=== PATIENT | male | born 1960 | race Caucasian/White ===

== ENCOUNTER 2019-08-07 23:17 | Inpatient (IN) | payer MEDICAID ==
[~2019-08-07] VITALS: Ht 170.2 cm; Wt 80.7 kg
[~2019-08-07 23:17] MED LIST: ALBU2.5V13 IH; ALBU2.5V13 NEB; BACL10TA GT; BISA10SU8 RC; CHLO15MO2 MM; CRAN3875 GT; DOCU-141 GT; HEPA50008 SQ; IPRA0.2S9 HHN; LEVE100S GT; LEVO500T75 GT; MAGN400O6 GT; NA P133E RC
--- NOTE | 2019-08-07 23:25 | NUR ---
PT BIBPA FROM [facility] C/O FEVER 101.3 AND O2 DESAT (89%) X1 DAY. TMAX 101.5, CXR TODAY SHOWED POSSIBLE BRONCHITIS. PT HAS ELEVATED HR UPON ARRIVAL 120'S. NON VERBAL BUT RESPONSIVE TO MECHANICAL STIMULUS. G TUBE AND TRACHE IN PLACE. NO ACUTE DISTRESS NOTED AT THIS TIME
--- NOTE | 2019-08-07 23:30 | NUR ---
IV LINE ESTABLISHED. BLOOD DRAWN AND SENT TO LAB
[2019-08-07 23:42] LABS: BASOPHILS % (AUTO) 0.3 % (0.0-2.0); EOSINOPHILS % (AUTO) 1.1 % (0.0-6.0); HEMATOCRIT 48 % (39-51); HEMOGLOBIN 16.1 g/dL (13.5-17.5); LYMPHOCYTES # (AUTO) 0.5 /CMM (0.8-4.8); LYMPHOCYTES % (AUTO) 4.8 % (20.0-44.0); MEAN CORPUSCULAR HGB CONC 33 g/dl (31.0-36.0); MEAN CORPUSCULAR VOLUME 92 fL (80-96); MONOCYTES # (AUTO) 0.5 /CMM (0.1-1.30); MONOCYTES % (AUTO) 4.3 % (2.0-12.0); NEUTROPHILS % (AUTO) 89.5 % (43.0-81.0); PLATELET COUNT (AUTO) 153 /CMM (150-450); RED BLOOD CELL COUNT(AUTO) 5.27 MIL/uL (4.5-6.0); WHITE BLOOD COUNT (AUTO) 11.2 K/uL (4.3-11.0)
--- NOTE | 2019-08-07 23:42 | NUR ---
URINE COLLECTED AND SENT TO LAB
[2019-08-07 23:48] LABS: APPEARANCE,URINE Clear (CLEAR); BILIRUBIN,URINE Negative (NEGATIVE); BLOOD, URINE Small Ery/uL (NEGATIVE); COLOR,URINE Yellow (YELLOW); KETONES,URINE Negative (NEGATIVE); LEUKOCYTE ESTERASE ,URINE Negative (NEGATIVE); NITRITE, URINE Negative (NEGATIVE); PROTEIN,URINE Trace mg/dl (NEGATIVE); UGLUCOSE Negative (NEGATIVE); UROBILINOGEN,URINE 0.2 EU/dL (0.2)
[2019-08-07 23:57] LABS: BACTERIA,URINE Moderate /HPF (None Seen); RBC,URINE 21-50 /HPF (0-2); SQUAMOUS EPITHELIAL CELL,UR Rare /HPF (None Seen)
[2019-08-08 00:06] LABS: CALCIUM, SERUM 8.4 mg/dL (8.5-10.1); CARBON DIOXIDE 29 mmol/L (21-32); CHLORIDE 101 mmol/L (98-107); GLUCOSE 117 mg/dL (74-106); POTASSIUM 3.6 mmol/L (3.5-5.1); SODIUM SERUM 138 mmol/L (136-145); UREA NITROGEN, BLOOD 14 mg/dL (7-18)
[2019-08-08 00:11] LABS: ALANINE AMINOTRANSFERASE 49 U/L (12-78); ALBUMIN 3.3 g/dL (3.4-5.0); ALKALINE PHOSPHATASE 119 U/L (46-116); ASPARTATE AMINOTRANSFERASE 34 U/L (15-37); BILIRUBIN,DIRECT 0.2 mg/dL (0.0-0.2); BILIRUBIN,TOTAL 0.7 mg/dL (0.2-1.0); TOTAL PROTEIN, SERUM 7.6 g/dL (6.4-8.2)
[2019-08-08] MEDS ORDERED: VANCOMYCIN 1 GM in IV D5W 250 ML IV ONE (00:30)
[2019-08-08] MEDS ORDERED: LEVOFLOXACIN 750 MG /D5W 150ML 150 ML IV ONE ×2 (00:30→01:27)
[2019-08-08] MEDS ORDERED: VANCOMYCIN 1 GM VIAL ONE (00:35)
[2019-08-08] MEDS ORDERED: ACETAMINOPHEN 650 MG/SUPP.RECT RC ONE ×2 (00:44→01:00)
[2019-08-08] MEDS ORDERED: IV NS 0.9% 1,000 ML BAG IV ONE ×2 (01:00→01:30)
--- NOTE | 2019-08-08 01:34 | NUR ---
BED ASSIGNMENT ALEXSANDRA [id number]
[2019-08-08] MEDS ORDERED: ONDANSETRON HCL/PF 4 MG/2 ML VIAL IVP PRN (02:00)
[2019-08-08] MEDS ORDERED: Z GUARD REMEDY 2 OZ OINT TP PRN (02:00)
[2019-08-08] MEDS ORDERED: MORPHINE SULFATE INJ 2 MG/ML DISP.SYRIN IV PRN (02:00)
[2019-08-08] MEDS ORDERED: MAG HYDROX/AL HYDROX/SIMETH 30 ML UDC PO PRN (02:00)
[2019-08-08] MEDS ORDERED: ACETAMINOPHEN 325 MG TABLET PO PRN (02:00)
[2019-08-08] MEDS ORDERED: MAGNESIUM HYDROXIDE 30 ML UDC PO PRN (02:00)
[2019-08-08] MEDS ORDERED: HYDROCODONE/APAP 5/325MG 1 EACH TABLET PO PRN (02:00)
--- NOTE | 2019-08-08 02:27 | NUR ---
FLUID REASSESSMENT TO BE DONE AT THE FLOOR
--- NOTE | 2019-08-08 02:45 | NUR ---
RN NOTES RECEIVED PATIENT REPORT FROM [facility] PATIENT IS IN THE UNIT . PATIENT PLACED ON MORTGAGE ORIGINATOR WITH ST. NO COMPLAINT OF PAIN , NO CHEST PAIN, NO SOB AT THIS TIME. PATIENT IS TRACH WITH COOL AEROSOL 5L.PATIENT IS A/OX3. IV LINE ARE PATIENT AND INTACT WITH IV FLUIDS. ALL SAFETY MEASURES ARE IN PLACE, CALL LIGHT IN REACH. WILL CONTINUE TO MONITOR PATIENT.
[2019-08-08 04:00] VITALS: BP 101/43
--- NOTE | 2019-08-08 04:15 | NUR ---
RN NOTES PATIENT HAD EPISODE OF V TACH AT 0406 FOR 46 SEC AND ANOTHER ONE AT 0412 FOR 2 SEC. MD CORTNEY QUEVEDO NOTIFIED . NO NEW ORDERS FOR NOW. PER HE WILL PUT CARDIO CONSULT FOR AM. WILL CONTINUE TO MONITOR PATIENT CLOSELY.
[2019-08-08 06:31] LABS: BASOPHILS % (AUTO) 0.2 % (0.0-2.0); EOSINOPHILS % (AUTO) 0.5 % (0.0-6.0); HEMATOCRIT 42 % (39-51); LYMPHOCYTES # (AUTO) 0.6 /CMM (0.8-4.8); LYMPHOCYTES % (AUTO) 5.5 % (20.0-44.0); MEAN CORPUSCULAR HGB CONC 33 g/dl (31.0-36.0); MEAN CORPUSCULAR VOLUME 92 fL (80-96); MONOCYTES # (AUTO) 0.7 /CMM (0.1-1.30); MONOCYTES % (AUTO) 7.3 % (2.0-12.0); NEUTROPHILS # (AUTO) 8.8 /CMM (1.8-8.9); NEUTROPHILS % (AUTO) 86.5 % (43.0-81.0); PLATELET COUNT (AUTO) 125 /CMM (150-450); WHITE BLOOD COUNT (AUTO) 10.1 K/uL (4.3-11.0)
[2019-08-08 06:47] LABS: ALBUMIN 2.6 g/dL (3.4-5.0); BILIRUBIN,TOTAL 0.5 mg/dL (0.2-1.0); CALCIUM, SERUM 7.4 mg/dL (8.5-10.1); CREATININE 0.8 mg/dL (0.6-1.3); MAGNESIUM 1.8 mg/dL (1.8-2.4); PHOSPHORUS 2.3 mg/dL (2.5-4.9); POTASSIUM 4.1 mmol/L (3.5-5.1); TOTAL PROTEIN, SERUM 6.2 g/dL (6.4-8.2)
[2019-08-08 06:53] LABS: THYROID STIMULATING HORMONE 0.259 uIU/mL (0.358-3.74)
--- NOTE | 2019-08-08 07:05 | NUR ---
RN NOTES RECEIVED PT ON BED, ALERT/FOLLOWS SIMPLE COMMAND, TRACH DEPENDENT , ON COOL AEROSOL AT 35% ,TRACH CARE DONE, NO SOB NOTED, ON TELE ST HR IN 120'S , R HAND AND L HAND IV SITES , CLEAN,DRY AND INTACT, SR UP x3, CALL LIGHT WITHIN EASY REACH, BED LOCKED AND IN LOWEST POSITION, CONTINUE TO MONITOR.
[2019-08-08] MEDS: IV NS 0.9% 1,000 ML IV PRN ×2 (07:06→21:28)
[2019-08-08] MEDS ORDERED: FEE PK DOSING 1 MIN EA MC ONE (07:35)
[2019-08-08 08:00] VITALS: BP_SYST 113; BP_SYST 118; BP_DIAS 66; BP_DIAS 67
[2019-08-08] MEDS: PANTOPRAZOLE 40 MG TABLET.DR PO SCH (08:09)
[2019-08-08] MEDS ORDERED: IPRA0.2S9 NEB (08:31)
[2019-08-08] MEDS ORDERED: ACET650S26 GT (08:31)
[2019-08-08] MEDS ORDERED: LACT100027 GT (08:31)
[2019-08-08] MEDS: VANCOMYCIN 1 GM in IV D5W 250 ML IV SCH ×2 (08:37→16:03)
[2019-08-08] MEDS ORDERED: NEUTRA PHOS 1 POWD.PACKET NG ONE (10:00)
[2019-08-08] MEDS: ENOXAPARIN SODIUM 40 MG/0.4 ML DISP.SYRIN SQ SCH (11:07)
[2019-08-08] MEDS: IPRATROPIUM NEB FS 0.5 MG/2.5 ML AMPUL.NEB NEB SCH ×4 (11:56→22:39)
[2019-08-08] MEDS: ALBUTEROL HALF STRENGTH 1.25 MG/3 ML VIAL.NEB NEB SCH ×4 (11:56→22:39)
--- NOTE | 2019-08-08 12:00 | NUR ---
RN NOTES TRACH SUCTIONING DONE, VSS STABLE , CONTINUE TO MONITOR .
[2019-08-08 16:00] VITALS: BP 99/54
--- NOTE | 2019-08-08 16:45 | NUR ---
Patient is trach dependent,resides at [facility] [phone] with bedhold x7days . He is bedfast and requires total assist with adl's. Current dc plan is to return to SNF. Addendum: 08/08/19 at 1645 by GELY LOZADA RN Amended: Links added.
--- NOTE | 2019-08-08 18:00 | NUR ---
RN NOTES NO SIGNIFICANT CHANGES NOTED ON THIS SHIFT, VSS STABLE, OK TO START TF PER DR WINSTON, SR UP X3, CALL LIGHT WITHIN EASY REACH, BED LOCKED AND IN LOWEST POSITION, WILL ENDOSE TO CHIEF INFORMATION SECURITY OFFICER NURSE FOR CONTINUITY OF CARE.
--- NOTE | 2019-08-08 19:30 | NUR ---
PER DAY SHIFT RN SHE'S WAITING FOR DIETARY RECOMMENDATION FOR TUBE FEEDING. WILL FOLLOW UP TO OUR HOSPITALIST
--- NOTE | 2019-08-08 19:31 | NUR ---
PER DAY SHIFT RN SHE CANT START TUBE FEEDING UNTIL PT SEEN BY DIETITIAN,
--- NOTE | 2019-08-08 19:44 | NUR ---
RECEIVE PT IN BED NON VERBAL ON COOL [id number] O2 SAT 100% STABLE SAFETY MEASURES IN PLACE. WILL CONTINUE TO MONTIOR Addendum: 08/09/19 at 0245 by ESPERANZA BATES RN ON COOL AEROSOL T-PIECE 8LPM.
[2019-08-08 20:00] VITALS: BP 104/59
[2019-08-08] MEDS: LEVOFLOXACIN 750 MG /D5W 150ML 750 MG in PREMIX 1 EA IV SCH (21:21)
--- NOTE | 2019-08-09 00:31 | NUR ---
PAGED AND CLARIFIED HOSPITALIST IF HE WOULD LIKE TO CONTINUE FEEDING FROM THE NURSING FACILITY. PER KOURTNEY VENEGAS, ORDER CONTINUE FEEDING FROM THE FACILITY ISOSOURCE CHANGE TO JEVITY AT 40CC/HR DIETARY CONSULT AT AM. READ BACK AND VERIFIED ORDERS NOTED AND CARRIED OUT
[2019-08-09] MEDS: VANCOMYCIN 1 GM in IV D5W 250 ML IV SCH ×4 (00:41→23:51)
[2019-08-09] MEDS: IPRATROPIUM NEB FS 0.5 MG/2.5 ML AMPUL.NEB NEB SCH ×6 (02:58→23:58)
[2019-08-09] MEDS: ALBUTEROL HALF STRENGTH 1.25 MG/3 ML VIAL.NEB NEB SCH ×6 (02:58→23:58)
[2019-08-09 04:00] VITALS: BP 98/55
--- NOTE | 2019-08-09 06:34 | NUR ---
PT SLEPT WELL, STABLE, GT FEEDING INFUSING ORDERED. ON PORTEX 7 COOL AEROSOL 8LPM T-PIECE O2 SAT 100% NEEDS ATTENDED AND ANTICIPATED, KEPT CLEAN, DRY AND COMFORTABLE AT ALL TIMES. AM CARE RENDERED. SAFETY MEASURES IN PLACE. WILL ENDORSE TO NEXT SHIFT POC.
[2019-08-09 08:00] VITALS: BP_SYST 105; BP_SYST 115; BP_DIAS 62; BP_DIAS 63
[2019-08-09] MEDS: PANTOPRAZOLE 40 MG TABLET.DR PO SCH (08:01)
[2019-08-09 08:03] LABS: BASOPHILS % (AUTO) 0.4 % (0.0-2.0); HEMATOCRIT 41 % (39-51); HEMOGLOBIN 13.8 g/dL (13.5-17.5); LYMPHOCYTES # (AUTO) 0.8 /CMM (0.8-4.8); LYMPHOCYTES % (AUTO) 16.6 % (20.0-44.0); MEAN CORPUSCULAR HGB CONC 34 g/dl (31.0-36.0); MEAN CORPUSCULAR VOLUME 90 fL (80-96); MONOCYTES # (AUTO) 0.6 /CMM (0.1-1.30); MONOCYTES % (AUTO) 12.6 % (2.0-12.0); NEUTROPHILS # (AUTO) 3.2 /CMM (1.8-8.9); NEUTROPHILS % (AUTO) 69.4 % (43.0-81.0); PLATELET COUNT (AUTO) 122 /CMM (150-450); RED BLOOD CELL COUNT(AUTO) 4.55 MIL/uL (4.5-6.0); WHITE BLOOD COUNT (AUTO) 4.6 K/uL (4.3-11.0)
[2019-08-09 08:56] LABS: CALCIUM, SERUM 7.8 mg/dL (8.5-10.1); CREATININE 0.8 mg/dL (0.6-1.3); PHOSPHORUS 1.9 mg/dL (2.5-4.9); POTASSIUM 3.6 mmol/L (3.5-5.1)
[2019-08-09] MEDS ORDERED: JEVITY 1.2 CAL 1,000 ML BOTTLE GT PRN ×2 (09:04)
[2019-08-09] MEDS: ENOXAPARIN SODIUM 40 MG/0.4 ML DISP.SYRIN SQ SCH (09:22)
[2019-08-09 12:00] VITALS: BP 107/63
[2019-08-09] MEDS: NYSTATIN TOP POWDER 15 GM BOTTLE TP SCH ×2 (15:10→17:01)
[2019-08-09 16:00] VITALS: BP_SYST 106; BP_SYST 113; BP_DIAS 68; BP_DIAS 70
[2019-08-09] MEDS ORDERED: K PHOS NEUTRAL 250 MG TABLET PO ONE (16:30)
[2019-08-09] MEDS: IV NS 0.9% 1,000 ML IV PRN (17:05)
--- NOTE | 2019-08-09 19:00 | NUR ---
MS/RN CLOSING NOTES PATIENT CONTINUES TO REMAIN IN STABLE CONDITION THROUGHOUT THE SHIFT. PROVIDED COMFORT AND SAFETY. PATIENT ABLE TO TOLERATE FEEDING AND MEDICATIONS WELL. HIB ELEVATED AT ALL TIMES. NO PAIN OR ACUTE DISTRESS AT THIS TIME. RESPIRATION EVEN AND UNLABORED. SKIN IS DRY WARM TO TOUCH. ALL NEEDS ANTICIPATED. CALL LIGHT WITHIN REACHED. BED LOCKED AND IN LOWEST POSITION. SAFETY MAINTAINED. WILL CONTINUE TO MONITOR CLOSELY. ENDORSED TO PM NURSE FOR JHON.
[2019-08-09 20:00] VITALS: BP 111/72
--- NOTE | 2019-08-09 20:32 | NUR ---
MS/RN OPENING NOTE RECEIVED PATIENT ALERT BUT NON-VERBAL, ABLE TO NOD TO QUESTIONS. PATIENT CURRENTLY SHOWING NO SIGNS OF ANY DISTRESS. PATIENT IS ON A T-PIECE WITH TRACH OF PORTEX #7 WITH 5L AND FIO2 OF 35%. PATIENT SHOWS NO SIGNS OF ANY SOB. PATIENT IS ON G-TUBE FEEDING OF JEVITY AT 60ML/HR WITH NO RESIDUAL. PATIENT HAS AN IV ON THE RT HAND WITH #22G WITH NS RUNNING AT 75ML/HR. ALL SAFETY PRECAUTION APPLIED. WILL CONTINUE TO MONITOR PATIENT THROUGHOUT SHIFT.
[2019-08-09] MEDS: LEVOFLOXACIN 750 MG /D5W 150ML 750 MG in PREMIX 1 EA IV SCH (21:14)
[2019-08-09] MEDS: JEVITY 1.2 CAL 1,000 ML BOTTLE GT PRN (22:25)
[2019-08-10] MEDS: ALBUTEROL HALF STRENGTH 1.25 MG/3 ML VIAL.NEB NEB SCH ×5 (03:48→20:23)
[2019-08-10] MEDS: IPRATROPIUM NEB FS 0.5 MG/2.5 ML AMPUL.NEB NEB SCH ×5 (03:48→20:23)
[2019-08-10 04:00] VITALS: BP 113/71
[2019-08-10] MEDS: IV NS 0.9% 1,000 ML IV PRN (06:25)
--- NOTE | 2019-08-10 07:01 | NUR ---
MS/RN CLOSING PATIENT IN BED CURRENTLY WITH NO SIGN OF ANY DISTRESS. PATIENT IS ON A T-PIECE WITH 8L OF 02 AND FIO2 OF 35% SATURATING AT 95%. NO SIGN OF ANY SOB. G-TUBE IN PLACE WITH FEEDING OF JEVITY RUNNING AT 60ML/HR WITH NO RESIDUAL. TRAORE CATHETER PATENT AND IN PLACE WITH NO LEAKAGE. PATEINT HAS RT HAND IV GAUGE #22 WITH NS RUNNING AT 75ML/HR.
[2019-08-10 07:36] LABS: BASOPHILS % (AUTO) 0.4 % (0.0-2.0); EOSINOPHILS % (AUTO) 3.6 % (0.0-6.0); HEMATOCRIT 42 % (39-51); HEMOGLOBIN 14.1 g/dL (13.5-17.5); LYMPHOCYTES # (AUTO) 1.2 /CMM (0.8-4.8); LYMPHOCYTES % (AUTO) 26.6 % (20.0-44.0); MEAN CORPUSCULAR HGB CONC 34 g/dl (31.0-36.0); MEAN CORPUSCULAR VOLUME 90 fL (80-96); MONOCYTES # (AUTO) 0.6 /CMM (0.1-1.30); MONOCYTES % (AUTO) 14.4 % (2.0-12.0); NEUTROPHILS # (AUTO) 2.4 /CMM (1.8-8.9); PLATELET COUNT (AUTO) 134 /CMM (150-450); RED BLOOD CELL COUNT(AUTO) 4.61 MIL/uL (4.5-6.0); WHITE BLOOD COUNT (AUTO) 4.4 K/uL (4.3-11.0)
[2019-08-10] MEDS: PANTOPRAZOLE 40 MG TABLET.DR PO SCH (07:40)
[2019-08-10 07:53] LABS: CALCIUM, SERUM 8.3 mg/dL (8.5-10.1); CREATININE 0.7 mg/dL (0.6-1.3); PHOSPHORUS 2.9 mg/dL (2.5-4.9); POTASSIUM 3.7 mmol/L (3.5-5.1)
[2019-08-10 08:00] VITALS: BP 117/69
[2019-08-10] MEDS: VANCOMYCIN 1 GM in IV D5W 250 ML IV SCH (08:57)
[2019-08-10] MEDS: ENOXAPARIN SODIUM 40 MG/0.4 ML DISP.SYRIN SQ SCH (08:58)
[2019-08-10] MEDS: NYSTATIN TOP POWDER 15 GM BOTTLE TP SCH ×2 (08:59→16:03)
[2019-08-10] MEDS: JEVITY 1.2 CAL 1,000 ML BOTTLE GT PRN (13:32)
[2019-08-10 16:00] VITALS: BP_SYST 110; BP_SYST 96; BP_DIAS 58; BP_DIAS 62
[2019-08-10] MEDS: VANCOMYCIN 0.75 GM in IV D5W 250 ML IV SCH ×2 (16:03→23:34)
--- NOTE | 2019-08-10 18:49 | NUR ---
MS/RN CLOSING NOTES PATIENT CONTINUES TO REMAIN IN STABLE CONDITION THROUGHOUT THE SHIFT. PROVIDED COMFORT AND SAFETY. PATIENT ABLE TO TOLERATE FEEDING AND MEDICATIONS WELL. HOB ELEVATED AT ALL TIMES. NO PAIN OR ACUTE DISTRESS AT THIS TIME. RESPIRATION EVEN AND UNLABORED. SKIN IS DRY WARM TO TOUCH. ALL NEEDS ANTICIPATED. CALL LIGHT WITHIN REACHED. BED LOCKED AND IN LOWEST POSITION. SAFETY MAINTAINED. WILL CONTINUE TO MONITOR CLOSELY. ENDORSED TO PM NURSE FOR JHON.
--- NOTE | 2019-08-10 19:40 | NUR ---
MS/RN OPENING NOTES PATIENT IS NON VERBAL ON COOLING AEROSOL, REQUIRE NEEDED SUCTIONING FOR MODERATE AND PRODUCTIVE SECRETIONS, SKIN WARM TO TOUCHM USES CONDOM CATHETER DRAINING YELLOW COLORED URINE, ON G TUBE FEEDING AR 60ML/HR, WITH RIGHT HAND GAUGE 220AT NS AT 75 ML/HR, TO MONITOR FOR ANY CHANGES. BED LOCKED, CALL LIGTHS WITHIN REACH.,, RECEIVED REPORT FROM AM RN FOR JHON.
[2019-08-10 20:00] VITALS: BP_SYST 107; BP_SYST 96; BP_DIAS 58; BP_DIAS 60
[2019-08-10] MEDS ORDERED: LEVOFLOXACIN (750 MG) 750 MG TABLET PO SCH (21:00)
[2019-08-11] MEDS: ALBUTEROL HALF STRENGTH 1.25 MG/3 ML VIAL.NEB NEB SCH ×6 (00:06→18:54)
[2019-08-11] MEDS: IPRATROPIUM NEB FS 0.5 MG/2.5 ML AMPUL.NEB NEB SCH ×6 (00:06→18:54)
[2019-08-11 04:00] VITALS: BP 110/69
--- NOTE | 2019-08-11 06:27 | NUR ---
MS/RN CLOSING NOTES PATIENT ABLE TO SLEEP DURING THE NIGHT, ATTENDED ALL NEEDS, FREQUENT SUCTIONING, REPOSITIONED AND TURNED, OFF LOAD EXTREMITIES, ON COOLING AEROSOL, GTUBE PATENT WITH NO RESIDUAL. WITH IV SITE ON LEFT ARM, KEPT COMFORTABLE. APPLIED TREATMENT FOR SACRAL AND GROIN. WILL ENDORSE TO AM RN FOR JHON.
--- NOTE | 2019-08-11 07:30 | NUR ---
RECEIVED BEDSIDE SBAR FROM PM RN - SAFETY PRECAUTIONS IN PLACE- VITALS STABLE - TRACH ARESOL ON, PIV IN PLACE AND IN TACT INFUSING- FEEDING TUBE INFUSING WELL- WILL CONTINUE TO MONITOR REPORT AND RECORD
[2019-08-11 08:00] VITALS: BP 107/65
[2019-08-11] MEDS: VANCOMYCIN 0.75 GM in IV D5W 250 ML IV SCH ×2 (08:11→15:28)
[2019-08-11] MEDS: PANTOPRAZOLE 40 MG TABLET.DR PO SCH (08:11)
[2019-08-11] MEDS: NYSTATIN TOP POWDER 15 GM BOTTLE TP SCH ×2 (08:11→16:46)
[2019-08-11] MEDS: ENOXAPARIN SODIUM 40 MG/0.4 ML DISP.SYRIN SQ SCH (08:13)
[2019-08-11 08:15] LABS: BASOPHILS % (AUTO) 0.5 % (0.0-2.0); EOSINOPHILS % (AUTO) 4.5 % (0.0-6.0); HEMATOCRIT 43 % (39-51); HEMOGLOBIN 14.4 g/dL (13.5-17.5); LYMPHOCYTES # (AUTO) 1.5 /CMM (0.8-4.8); LYMPHOCYTES % (AUTO) 29.6 % (20.0-44.0); MEAN CORPUSCULAR HGB CONC 34 g/dl (31.0-36.0); MEAN CORPUSCULAR VOLUME 91 fL (80-96); MONOCYTES # (AUTO) 0.6 /CMM (0.1-1.30); NEUTROPHILS # (AUTO) 2.8 /CMM (1.8-8.9); NEUTROPHILS % (AUTO) 54.4 % (43.0-81.0); PLATELET COUNT (AUTO) 134 /CMM (150-450); RED BLOOD CELL COUNT(AUTO) 4.71 MIL/uL (4.5-6.0); WHITE BLOOD COUNT (AUTO) 5.1 K/uL (4.3-11.0)
[2019-08-11 08:27] LABS: CALCIUM, SERUM 8.5 mg/dL (8.5-10.1); CREATININE 0.8 mg/dL (0.6-1.3); POTASSIUM 3.3 mmol/L (3.5-5.1)
[2019-08-11] MEDS ORDERED: MAG HYDROX/AL HYDROX/SIMETH 30 ML UDC GT PRN (11:30)
[2019-08-11] MEDS ORDERED: ACETAMINOPHEN 650 MG/20.3 ML UDC GT PRN (11:30)
[2019-08-11] MEDS ORDERED: HYDROCODONE/APAP 5/325MG 1 EACH TABLET GT PRN (11:30)
[2019-08-11] MEDS ORDERED: MAGNESIUM HYDROXIDE 30 ML UDC GT PRN (11:30)
[2019-08-11] MEDS ORDERED: POTASSIUM CHLORIDE 20 MEQ POWDER PACKET GT SCH (11:30)
--- NOTE | 2019-08-11 13:10 | NUR ---
[place] called for report [phone]-spoke with SHANNON Lopez
--- NOTE | 2019-08-11 15:29 | NUR ---
patient is being discharged from facility back to [facility]- lines removed- waiting for transportation
[2019-08-11 15:59] VITALS: BP 114/73
--- NOTE | 2019-08-11 19:18 | NUR ---
care endorsed to pm rn - safety precautions in place- will continue to monitor report and record
--- NOTE | 2019-08-11 19:30 | NUR ---
MS RN NOTES PATIENTI N BED, NONVERBAL. SHOWS NO SIGNS OF ACUTE RESPIRATORY DISTRESS, NO ACUTE PAIN. IV ON LAND 24G CLEAN, DRY AND INTACT. SHOWS NO SIGNS OF INFILTRATION NO REDNESS. GTUBE IS CLEAN DRY AND INTACT, FLUSHING WELL. SAFETY PRECAUTION IN PLACE.BED IN LOWEST POSITION, LOCKED, AND CALL LIGHT KEPT WITHIN REACH. [facility] TO [facility], AWAITING CLERICAL AND ADMINISTRATIVE WORKERS. WILL CONTINUE TO MONITOR.
[2019-08-11 20:00] VITALS: BP 105/56
--- NOTE | 2019-08-11 21:30 | NUR ---
MS RN NOTES PATIENT LEFT AMBULANCE AT 2130. PATIENT NONVERBAL, CAN FOLLOW COMMANDS. BREATHING EVEN AND UNLABORED ON TRACH WITH AEROSOL. IV ON LAC 22G CLEAN DRY AND INTACT. EMT ASKED FOR IV TO BE IN PLACE. GT CLEAN DRY AND INTACT. ID BAND REMOVED. BELONGINGS CHECKLIST COMPLETED. REPORT GIVEN TO RN IN [facility].
[2019-08-12] MEDS ORDERED: PANTOPRAZOLE 40 MG/PACK PACK GT SCH (09:00)
== END 2019-08-11 21:30 | DRG 720 ==
LOC: ER 23:17 → TELE-TD 08-08 01:48 → MEDSG1 08-08 10:50
PROVIDERS: ADMIT Family Medicine; ATTEND Family Medicine
DX: A41.9 Sepsis, unspecified organism (principal); E43 Unspecified severe protein-calorie malnutrition; G93.1 Anoxic brain damage, not elsewhere classified; J96.11 Chronic respiratory failure with hypoxia; Z93.0 Tracheostomy status; R53.2 Functional quadriplegia; J18.9 Pneumonia, unspecified organism; D69.6 Thrombocytopenia, unspecified; I10 Essential (primary) hypertension; K21.9 Gastro-esophageal reflux disease without esophagitis; N39.0 Urinary tract infection, site not specified; Z87.820 Personal history of traumatic brain injury; Z93.1 Gastrostomy status; Z68.27 Body mass index [BMI] 27.0-27.9, adult; R13.10 Dysphagia, unspecified; L30.4 Erythema intertrigo; J20.9 Acute bronchitis, unspecified; Z88.0 Allergy status to penicillin; Z88.1 Allergy status to other antibiotic agents; Z79.01 Long term (current) use of anticoagulants; Z79.51 Long term (current) use of inhaled steroids
CPT/HCPCS: 31720; 36415; 71045-TC; 80048-TC; 80053-TC; 80061-TC; 80076-TC; 80202-TC; 81000-TC; 83605-TC; 83735-TC; 84100-TC; 84443-TC; 84484-TC; 85025-TC; 85730-TC; 87040-TC; 87070-TC; 87081-TC; 87086-TC; 94640-TC; 94664-TC; 94762-TC; A4216; A4349; A4623; G0378; J1650; J1956; J3370; J7030; J7060

== ENCOUNTER 2022-03-19 18:47 | Emergency (ER) | payer MEDICAID ==
[~2022-03-19] VITALS: Ht 167.6 cm; Wt 77.1 kg
[~2022-03-19 18:47] MED LIST changes: +ACET650S26 GT; -HEPA50008 SQ; +IPRA0.2S9 NEB; +LACT100027 GT; -LEVO500T75 GT
--- NOTE | 2022-03-19 18:55 | NUR ---
ELKIN FROM [facility] FOR C/O OF FACIAL SWELLING SINCE THIS MORNING. PT NOTED W/ TRACH INTACT, NO RESPIRATORY DISTRESS. PT ATTACHED TO MONITOR.
--- NOTE | 2022-03-19 19:04 | NUR ---
DR CAREY AT BEDSIDE FOR EVAL
--- NOTE | 2022-03-19 19:20 | NUR ---
IV LINE INSERTED ON RAC #20, BLOOD DRAWN AND SENT TO LAB
--- NOTE | 2022-03-19 19:30 | NUR ---
RECEIVED THIS 62YO MALE PATIENT FROM [facility]. CAME EARLIER WITH CC OF FACIAL SWELLING. PATIENT IS NON VERBAL, WITHDRAWS TO PAIN. CAME WITH TRACHE COLLAR AND WITH GTUBE. PATIENT HAS PERIPHERAL ACCESS ON LEFT AC G20. + BILATERAL HANDS CONTRACTURES. FOR PRN SUCTIONING. ATTACHED TO MONITOR. VITALS CHECKED.
[2022-03-19 19:47] LABS: CALCIUM, SERUM 9.1 mg/dL (8.5-10.1); CREATININE 0.7 mg/dL (0.6-1.3); POTASSIUM 4.2 mmol/L (3.5-5.1)
[2022-03-19 19:48] LABS: C-REACTIVE PROTEIN 4.1 mg/dL (0.0-0.9)
[2022-03-19] MEDS ORDERED: LORAZEPAM INJ 2 MG/ML VIAL ONE (20:00)
[2022-03-19] MEDS ORDERED: LORAZEPAM INJ 2 MG/ML VIAL IV ONE (20:00)
[2022-03-19] MEDS ORDERED: IOHEXOL-300 100 ML VIAL IV ONE (20:14)
[2022-03-19 20:18] LABS: BASOPHILS % (AUTO) 0.3 % (0.0-2.0); EOSINOPHILS % (AUTO) 3.2 % (0.0-6.0); HEMATOCRIT 47 % (39-51); HEMOGLOBIN 16.1 g/dL (13.5-17.5); LYMPHOCYTES # (AUTO) 1.5 K/uL (0.8-4.8); LYMPHOCYTES % (AUTO) 17.1 % (20.0-44.0); MEAN CORPUSCULAR HGB CONC 34 g/dl (31.0-36.0); MEAN CORPUSCULAR VOLUME 91 fL (80-96); MONOCYTES # (AUTO) 0.6 K/uL (0.1-1.30); MONOCYTES % (AUTO) 6.7 % (2.0-12.0); NEUTROPHILS # (AUTO) 6.2 K/uL (1.8-8.9); NEUTROPHILS % (AUTO) 72.7 % (43.0-81.0); PLATELET COUNT (AUTO) 169 K/uL (150-450); RED BLOOD CELL COUNT(AUTO) 5.18 MIL/uL (4.5-6.0); WHITE BLOOD COUNT (AUTO) 8.5 K/uL (4.3-11.0)
--- NOTE | 2022-03-19 20:48 | NUR ---
PT BROUGHT TO CT DEPARTMENT
--- NOTE | 2022-03-19 21:03 | NUR ---
CAME BACK FROM CT DEPT
--- NOTE | 2022-03-19 22:14 | NUR ---
PT WILL BE TRANSPORTED IN 90 MINS VIA [facility].
--- NOTE | 2022-03-19 22:23 | NUR ---
N[facility] RN AT [facility] NOTIF[facility] THAT [facility] IS COMING BACK. REPORT GIVEN
--- NOTE | 2022-03-20 00:15 | NUR ---
[facility] at bedside for pt transport back from his facility. pt is in stable condition. NAD noted. report given
[2022-03-20 00:56] VITALS: BP 111/51
== END 2022-03-20 00:30 | disposition home or self-care (01) ==
LOC: ER 19:27
DX: R22.0 Localized swelling, mass and lump, head (principal); I10 Essential (primary) hypertension; K21.9 Gastro-esophageal reflux disease without esophagitis; Z93.1 Gastrostomy status; Z88.0 Allergy status to penicillin; Z88.8 Allergy status to other drugs, medicaments and biological substances; Z79.899 Other long term (current) drug therapy
CPT/HCPCS: 99285; 96374; 70491; 85025; 80048; 85652; 36415; 85730; 86140; J2060; Q9967

== ENCOUNTER 2023-04-23 08:57 | Inpatient (IN) | payer MEDICAID, OTHER ==
[~2023-04-23] VITALS: Ht 170.2 cm; Wt 83.9 kg
[2023-04-23] MEDS ORDERED: IV NS 0.9% 1,000 ML BAG IV ONE (09:30)
[2023-04-23] MEDS ORDERED: LEVOFLOXACIN 750 MG /D5W 150ML PIGGYBACK IV ONE (09:30)
[2023-04-23] MEDS ORDERED: ALBUTEROL FS 2.5 MG/3 ML VIAL.NEB NEB ONE (09:30)
[2023-04-23] MEDS ORDERED: ACET-2605 GT (09:34)
[2023-04-23] MEDS ORDERED: CRAN425C6 GT (09:34)
[2023-04-23] MEDS ORDERED: ACET-2070 GT (09:34)
[2023-04-23] MEDS ORDERED: ALBU6.7H9 IH ×2 (09:34)
[2023-04-23 09:38] VITALS: O2SAT 95
[2023-04-23] MEDS ORDERED: ALBUTEROL FS 2.5 MG/3 ML VIAL.NEB ONE (09:45)
[2023-04-23] MEDS ORDERED: IPRATROPIUM NEB FS 0.5 MG/2.5 ML AMPUL.NEB ONE (09:45)
[2023-04-23 09:53] LABS: CALCIUM, SERUM 9.5 mg/dL (8.5-10.1); CARBON DIOXIDE 30 mmol/L (21-32); CHLORIDE 100 mmol/L (98-107); CREATININE 0.6 mg/dL (0.6-1.3); GLUCOSE 136 mg/dL (74-106); POTASSIUM 4.6 mmol/L (3.5-5.1); SODIUM SERUM 136 mmol/L (136-145); UREA NITROGEN, BLOOD 22 mg/dL (7-18)
[2023-04-23 09:55] VITALS: O2SAT 97
[2023-04-23 09:59] LABS: ALANINE AMINOTRANSFERASE 40 U/L (12-78); ALBUMIN 2.7 g/dL (3.4-5.0); ALKALINE PHOSPHATASE 141 U/L (46-116); ASPARTATE AMINOTRANSFERASE 29 U/L (15-37); BILIRUBIN,DIRECT 0.3 mg/dL (0.0-0.2); BILIRUBIN,TOTAL 0.7 mg/dL (0.2-1.0); TOTAL PROTEIN, SERUM 8.6 g/dL (6.4-8.2)
[2023-04-23] MEDS ORDERED: LEVOFLOXACIN 750 MG /D5W 150ML 750 MG in PREMIX 1 EA IV ONE (10:00)
[2023-04-23 10:01] LABS: LACTIC ACID 1.2 mmol/L (0.4-2.0)
[2023-04-23 10:21] LABS: INR 1.05 (0.91-1.10); PARTIAL THROMBOPLASTIN TIME 30.2 SEC (24.3-34.3); PROTHROMBIN TIME 11.1 SECS (9.2-11.1)
[2023-04-23 10:25] LABS: EOSINOPHILS # (AUTO) 0.5 K/uL (0.0-0.7); EOSINOPHILS % (AUTO) 4.7 % (0.0-6.0); HEMATOCRIT 48 % (39-51); HEMOGLOBIN 15.9 g/dL (13.5-17.5); LYMPHOCYTES # (AUTO) 1.3 K/uL (0.8-4.8); LYMPHOCYTES % (AUTO) 11.6 % (20.0-44.0); MEAN CORPUSCULAR HEMOGLOBIN 30 PG (26.0-33.0); MEAN CORPUSCULAR HGB CONC 33 g/dl (31.0-36.0); MEAN CORPUSCULAR VOLUME 90 fL (80-96); MONOCYTES # (AUTO) 0.9 K/uL (0.1-1.30); NEUTROPHILS # (AUTO) 8.5 K/uL (1.8-8.9); NEUTROPHILS % (AUTO) 75.7 % (43.0-81.0); PLATELET COUNT (AUTO) 211 K/uL (150-450); RED BLOOD CELL COUNT(AUTO) 5.32 MIL/uL (4.5-6.0); RED CELL DISTRIBUTION WIDTH 15.9 % (11.5-15.0); WHITE BLOOD COUNT (AUTO) 11.2 K/uL (4.3-11.0)
[2023-04-23 12:02] LABS: APPEARANCE,URINE CLEAR (CLEAR); BILIRUBIN,URINE NEGATIVE (NEGATIVE); BLOOD, URINE TRACE-INTA Ery/uL (NEGATIVE); COLOR,URINE YELLOW (YELLOW); KETONES,URINE NEGATIVE (NEGATIVE); LEUKOCYTE ESTERASE ,URINE NEGATIVE (NEGATIVE); NITRITE, URINE NEGATIVE (NEGATIVE); PH,URINE 6.5 (5.0-8.0); PROTEIN,URINE 2+ mg/dl (NEGATIVE); UGLUCOSE NEGATIVE (NEGATIVE)
[2023-04-23 12:52] LABS: ADD URINE CULTURE YES; BACTERIA,URINE 2+ /HPF (None Seen); WBC,URINE 0-2 /HPF (0-3)
[2023-04-23] MEDS ORDERED: ONDANSETRON HCL/PF 4 MG/2 ML VIAL IVP PRN (14:30)
[2023-04-23] MEDS ORDERED: Z GUARD REMEDY 4 OZ OINT TP PRN (14:30)
[2023-04-23] MEDS ORDERED: CEFEPIME 1 GM VIAL IV ONE (15:00)
[2023-04-23] MEDS ORDERED: CEFEPIME 1 GM in IV D5W 50 ML IV ONE (15:00)
[2023-04-23] MEDS ORDERED: NA PHOS,M-B/NA PHOS,DI-BA 1 EA ENEMA RC PRN (16:00)
[2023-04-23] MEDS ORDERED: BISACODYL SUPP (10 MG) 10 MG/SUPP.RECT SUPP.RECT RC PRN (16:00)
[2023-04-23] MEDS ORDERED: MAGNESIUM HYDROXIDE 30 ML UDC GT PRN (16:00)
[2023-04-23] MEDS: VANCOMYCIN 1 GM in IV D5W 250ml IV SCH (16:46)
[2023-04-23] MEDS ORDERED: OSMOLITE 1.2 CAL 1,000 ML LIQUID GT PRN (17:00)
[2023-04-23] MEDS ORDERED: diphenhydrAMINE HCL 50 MG/ML VIAL IV STA (17:16)
[2023-04-23] MEDS: BACLOFEN (10 MG) 10 MG TABLET GT SCH (17:35)
[2023-04-23 20:00] VITALS: BP 118/86; TEMP 98.7; O2SAT 96
[2023-04-23 20:21] VITALS: O2SAT 96
[2023-04-23] MEDS: CHLORHEXIDINE GLUCONATE 15 ML UDC MM SCH (20:54)
[2023-04-23] MEDS: LEVETIRACETAM SOL (5 ML) 100 MG/ML UDC GT SCH (20:54)
[2023-04-23 22:51] VITALS: O2SAT 95
[2023-04-23] MEDS: ACETAMINOPHEN 650 MG/20.3 ML UDC PEG PRN (22:51)
[2023-04-23] MEDS: ALBUTEROL FS 2.5 MG/3 ML VIAL.NEB NEB PRN (22:51)
[2023-04-23] MEDS: IPRATROPIUM NEB FS 0.5 MG/2.5 ML AMPUL.NEB NEB PRN (22:51)
[2023-04-23 23:05] VITALS: O2SAT 98
[2023-04-24] VITALS (10 sets, daily range): BP systolic 103–157; BP diastolic 59–93; TEMP 98.6–99.7; O2SAT 92–98
[2023-04-24] MEDS: BACLOFEN (10 MG) 10 MG TABLET GT SCH ×5 (00:39→23:44)
[2023-04-24] MEDS: VANCOMYCIN 1 GM in IV D5W 250ml IV SCH (00:50)
[2023-04-24] MEDS ORDERED: diphenhydrAMINE HCL ELIX 25 MG/10 ML UDC PO PRN (01:00)
[2023-04-24 05:51] LABS: ABG BASE EXCESS 2.6 mmol/L; ABG OXYGEN SATURATION 93.9 % (92.0-98.5); ABG PCO2 47.3 mmHg (35.0-45.0); ABG PH 7.394 (7.350-7.450); ABG PO2 69.9 mmHg (75.0-100.0); ABG TOTAL HEMOGLOBIN 14.8 G/dL (13.5-18.0); AaDO2 160.9 mmHg; COHb 1.2 % (0.5-1.5); MetHb 0.2 % (0.0-1.5); O2Hb 92.6 % (94.0-97.0); SITE, ABG Right Brachial; VENT MODE, BG COOL AEROSOL 40%
[2023-04-24 06:26] LABS: BASOPHILS % (AUTO) 0.1 % (0.0-2.0); EOSINOPHILS # (AUTO) 0.3 K/uL (0.0-0.7); EOSINOPHILS % (AUTO) 2.7 % (0.0-6.0); HEMATOCRIT 41 % (39-51); HEMOGLOBIN 13.6 g/dL (13.5-17.5); LYMPHOCYTES # (AUTO) 1.4 K/uL (0.8-4.8); LYMPHOCYTES % (AUTO) 13.5 % (20.0-44.0); MEAN CORPUSCULAR HEMOGLOBIN 30 PG (26.0-33.0); MEAN CORPUSCULAR HGB CONC 33 g/dl (31.0-36.0); MEAN CORPUSCULAR VOLUME 92 fL (80-96); MONOCYTES % (AUTO) 9.6 % (2.0-12.0); NEUTROPHILS # (AUTO) 7.9 K/uL (1.8-8.9); NEUTROPHILS % (AUTO) 74.1 % (43.0-81.0); PLATELET COUNT (AUTO) 205 K/uL (150-450); RED BLOOD CELL COUNT(AUTO) 4.49 MIL/uL (4.5-6.0); RED CELL DISTRIBUTION WIDTH 16.1 % (11.5-15.0); WHITE BLOOD COUNT (AUTO) 10.7 K/uL (4.3-11.0)
[2023-04-24 08:01] LABS: CALCIUM, SERUM 8.6 mg/dL (8.5-10.1); CREATININE 0.8 mg/dL (0.6-1.3); MAGNESIUM 1.8 mg/dL (1.8-2.4); PHOSPHORUS 3.6 mg/dL (2.5-4.9); POTASSIUM 4.1 mmol/L (3.5-5.1)
[2023-04-24] MEDS: CHLORHEXIDINE GLUCONATE 15 ML UDC MM SCH ×2 (09:00→20:27)
[2023-04-24] MEDS: LEVETIRACETAM SOL (5 ML) 100 MG/ML UDC GT SCH ×2 (09:00→20:27)
[2023-04-24] MEDS: DOCUSATE SODIUM LIQ 100 MG/10 ML UDC GT SCH (09:00)
[2023-04-24] MEDS ORDERED: VANCOMYCIN 1 GM in IV D5W 250ml IV SCH (10:00)
[2023-04-24] MEDS ORDERED: LEVOFLOXACIN 750 MG /D5W 150ML 750 MG in PREMIX 1 EA IV SCH (11:00)
[2023-04-24] MEDS: ACETAMINOPHEN 650 MG/20.3 ML UDC PEG PRN (13:46)
[2023-04-24] MEDS: CEFEPIME 2 GM in IV D5W 100 ML IV SCH ×2 (13:48→20:26)
[2023-04-24 14:41] LABS: HIV-1 p24 ANTIGEN NON REACTIVE (NONREACTIVE); HIV-1/2 ANTIBODY NON REACTIVE (NONREACTIVE)
[2023-04-24] MEDS: LINEZOLID 600 MG TABLET NG SCH (20:28)
[2023-04-24] MEDS ORDERED: LINEZOLID RTU BAG 600 MG in PREMIX 1 EA IV SCH (21:00)
[2023-04-24] MEDS: HEPARIN SODIUM, PORCINE 5000 UNITS/1 ML VIAL SQ SCH (21:21)
[2023-04-25] VITALS (11 sets, daily range): BP systolic 107–134; BP diastolic 67–84; TEMP 98.2–99; O2SAT 93–99
[2023-04-25] MEDS: CEFEPIME 2 GM in IV D5W 100 ML IV SCH ×3 (05:16→20:28)
[2023-04-25] MEDS: BACLOFEN (10 MG) 10 MG TABLET GT SCH ×3 (05:17→17:57)
[2023-04-25 06:27] LABS: BASOPHILS % (AUTO) 0.2 % (0.0-2.0); EOSINOPHILS # (AUTO) 0.1 K/uL (0.0-0.7); EOSINOPHILS % (AUTO) 0.6 % (0.0-6.0); HEMATOCRIT 43 % (39-51); HEMOGLOBIN 14.4 g/dL (13.5-17.5); LYMPHOCYTES # (AUTO) 0.7 K/uL (0.8-4.8); LYMPHOCYTES % (AUTO) 6.5 % (20.0-44.0); MEAN CORPUSCULAR HEMOGLOBIN 30 PG (26.0-33.0); MEAN CORPUSCULAR HGB CONC 33 g/dl (31.0-36.0); MEAN CORPUSCULAR VOLUME 91 fL (80-96); MONOCYTES # (AUTO) 0.9 K/uL (0.1-1.30); MONOCYTES % (AUTO) 8.1 % (2.0-12.0); NEUTROPHILS # (AUTO) 9.6 K/uL (1.8-8.9); NEUTROPHILS % (AUTO) 84.6 % (43.0-81.0); PLATELET COUNT (AUTO) 240 K/uL (150-450); RED BLOOD CELL COUNT(AUTO) 4.77 MIL/uL (4.5-6.0); RED CELL DISTRIBUTION WIDTH 15.8 % (11.5-15.0); WHITE BLOOD COUNT (AUTO) 11.4 K/uL (4.3-11.0)
[2023-04-25 06:59] LABS: CALCIUM, SERUM 8.9 mg/dL (8.5-10.1); CREATININE 0.6 mg/dL (0.6-1.3); MAGNESIUM 2.2 mg/dL (1.8-2.4); PHOSPHORUS 3.2 mg/dL (2.5-4.9); POTASSIUM 4.1 mmol/L (3.5-5.1)
[2023-04-25] MEDS: LEVETIRACETAM SOL (5 ML) 100 MG/ML UDC GT SCH ×2 (08:32→20:28)
[2023-04-25] MEDS: DOCUSATE SODIUM LIQ 100 MG/10 ML UDC GT SCH (08:32)
[2023-04-25] MEDS: LINEZOLID 600 MG TABLET NG SCH ×2 (08:32→20:28)
[2023-04-25] MEDS: CHLORHEXIDINE GLUCONATE 15 ML UDC MM SCH ×2 (09:00→20:28)
[2023-04-25] MEDS: HEPARIN SODIUM, PORCINE 5000 UNITS/1 ML VIAL SQ SCH ×2 (09:00→20:57)
[2023-04-26] VITALS (12 sets, daily range): BP systolic 107–174; BP diastolic 70–136; TEMP 97.7–99.3; O2SAT 91–97
[2023-04-26] MEDS: BACLOFEN (10 MG) 10 MG TABLET GT SCH ×4 (00:17→18:07)
[2023-04-26] MEDS: CEFEPIME 2 GM in IV D5W 100 ML IV SCH ×3 (04:08→21:18)
[2023-04-26 06:21] LABS: CREATININE 0.8 mg/dL (0.6-1.3); POTASSIUM 4.2 mmol/L (3.5-5.1)
[2023-04-26] MEDS: LEVETIRACETAM SOL (5 ML) 100 MG/ML UDC GT SCH ×2 (09:44→21:23)
[2023-04-26] MEDS: DOCUSATE SODIUM LIQ 100 MG/10 ML UDC GT SCH (09:44)
[2023-04-26] MEDS: CHLORHEXIDINE GLUCONATE 15 ML UDC MM SCH ×2 (09:44→21:18)
[2023-04-26] MEDS: HEPARIN SODIUM, PORCINE 5000 UNITS/1 ML VIAL SQ SCH ×2 (09:48→21:00)
[2023-04-26] MEDS: LINEZOLID 600 MG TABLET NG SCH (09:48)
[2023-04-26] MEDS ORDERED: LORAZEPAM INJ 2 MG/ML VIAL IV ONE (12:00)
[2023-04-26] MEDS: JEVITY 1.2 CAL 1,000 ML BOTTLE GT PRN (14:36)
[2023-04-26 15:29] LABS: INR 1.08 (0.91-1.10); PROTHROMBIN TIME 11.4 SECS (9.2-11.1)
[2023-04-26] MEDS ORDERED: ZINC OXIDE 30 GM TUBE TP PRN (16:30)
[2023-04-26] MEDS: ACETAMINOPHEN 650 MG/20.3 ML UDC PEG PRN (21:27)
[2023-04-27] VITALS (7 sets, daily range): BP systolic 110–143; BP diastolic 67–74; TEMP 98.4–99.1; O2SAT 90–100
[2023-04-27] MEDS: BACLOFEN (10 MG) 10 MG TABLET GT SCH ×5 (00:15→23:34)
[2023-04-27] MEDS: CEFEPIME 2 GM in IV D5W 100 ML IV SCH ×3 (05:30→20:25)
[2023-04-27 06:32] LABS: CALCIUM, SERUM 8.9 mg/dL (8.5-10.1); CREATININE 0.8 mg/dL (0.6-1.3); POTASSIUM 4.3 mmol/L (3.5-5.1)
[2023-04-27] MEDS: LEVETIRACETAM SOL (5 ML) 100 MG/ML UDC GT SCH ×2 (08:54→20:25)
[2023-04-27] MEDS: CHLORHEXIDINE GLUCONATE 15 ML UDC MM SCH ×2 (08:54→20:25)
[2023-04-27] MEDS: DOCUSATE SODIUM LIQ 100 MG/10 ML UDC GT SCH (08:54)
[2023-04-27] MEDS: HEPARIN SODIUM, PORCINE 5000 UNITS/1 ML VIAL SQ SCH ×2 (08:55→20:27)
[2023-04-27] MEDS: JEVITY 1.2 CAL 1,000 ML BOTTLE GT PRN (11:44)
[2023-04-27 14:28] LABS: PROTEIN, BODY FLUID 5.4 G/DL
[2023-04-27 15:12] LABS: ABG BASE EXCESS 6.5 mmol/L; ABG OXYGEN SATURATION 92.7 % (92.0-98.5); ABG PCO2 55.1 mmHg (35.0-45.0); ABG PH 7.396 (7.350-7.450); ABG TOTAL HEMOGLOBIN 14.5 G/dL (13.5-18.0); AaDO2 156.8 mmHg; COHb 1.2 % (0.5-1.5); MetHb 0.2 % (0.0-1.5); O2Hb 91.4 % (94.0-97.0); SITE, ABG Right Radial; VENT MODE, BG COOL AERO 40%
[2023-04-27] MEDS: ACETYLCYSTEINE 20% SOLN 800 MG/4 ML VIAL NEB SCH (16:20)
[2023-04-27] MEDS: ALBUTEROL FS 2.5 MG/3 ML VIAL.NEB NEB PRN (16:20)
[2023-04-27] MEDS: IPRATROPIUM NEB FS 0.5 MG/2.5 ML AMPUL.NEB NEB PRN (16:20)
[2023-04-27 16:45] LABS: APPEARANCE,SPUN,BODY FLUID CLEAR (CLEAR)
[2023-04-27 16:46] LABS: WBC, BODY FLUID 444 /cu. mm. (0-200)
[2023-04-27 16:47] LABS: POLYNUCLEAR, BODY FLUID 50 % (0-25)
[2023-04-28] VITALS: BP 104/72; TEMP 97.7; O2SAT 100
[2023-04-28] MEDS: ACETYLCYSTEINE 20% SOLN 800 MG/4 ML VIAL NEB SCH ×4 (00:08→23:48)
[2023-04-28 04:00] VITALS: BP 106/69; TEMP 99; O2SAT 100
[2023-04-28] MEDS: BACLOFEN (10 MG) 10 MG TABLET GT SCH ×3 (05:07→17:43)
[2023-04-28] MEDS: CEFEPIME 2 GM in IV D5W 100 ML IV SCH ×3 (05:07→22:18)
[2023-04-28 05:50] LABS: BASOPHILS % (AUTO) 0.4 % (0.0-2.0); EOSINOPHILS # (AUTO) 0.1 K/uL (0.0-0.7); EOSINOPHILS % (AUTO) 1.7 % (0.0-6.0); HEMATOCRIT 37 % (39-51); HEMOGLOBIN 12.2 g/dL (13.5-17.5); LYMPHOCYTES # (AUTO) 1.1 K/uL (0.8-4.8); LYMPHOCYTES % (AUTO) 13.7 % (20.0-44.0); MEAN CORPUSCULAR HEMOGLOBIN 30 PG (26.0-33.0); MEAN CORPUSCULAR HGB CONC 33 g/dl (31.0-36.0); MEAN CORPUSCULAR VOLUME 91 fL (80-96); MONOCYTES # (AUTO) 0.6 K/uL (0.1-1.30); MONOCYTES % (AUTO) 7.2 % (2.0-12.0); PLATELET COUNT (AUTO) 264 K/uL (150-450); RED BLOOD CELL COUNT(AUTO) 4.01 MIL/uL (4.5-6.0); RED CELL DISTRIBUTION WIDTH 15.8 % (11.5-15.0); WHITE BLOOD COUNT (AUTO) 7.8 K/uL (4.3-11.0)
[2023-04-28 06:01] LABS: CALCIUM, SERUM 8.8 mg/dL (8.5-10.1); CREATININE 0.8 mg/dL (0.6-1.3)
[2023-04-28] MEDS: JEVITY 1.2 CAL 1,000 ML BOTTLE GT PRN (07:29)
[2023-04-28] MEDS ORDERED: diphenhydrAMINE HCL ELIX 25 MG/10 ML UDC GT PRN (07:55)
[2023-04-28 08:00] VITALS: BP 95/65; TEMP 99.3; O2SAT 99
[2023-04-28] MEDS: CHLORHEXIDINE GLUCONATE 15 ML UDC MM SCH ×2 (08:16→22:02)
[2023-04-28] MEDS: DOCUSATE SODIUM LIQ 100 MG/10 ML UDC GT SCH (08:16)
[2023-04-28] MEDS: LEVETIRACETAM SOL (5 ML) 100 MG/ML UDC GT SCH ×2 (08:17→22:02)
[2023-04-28] MEDS: HEPARIN SODIUM, PORCINE 5000 UNITS/1 ML VIAL SQ SCH ×2 (08:18→22:04)
[2023-04-28 12:00] VITALS: BP 107/74; TEMP 98.9; O2SAT 98
[2023-04-28] MEDS: GLUCERNA 1.2 1,000 ML BOTTLE NG PRN (15:55)
[2023-04-28 16:00] VITALS: BP 97/58; TEMP 98.2; O2SAT 97
[2023-04-28 20:00] VITALS: BP 142/71; TEMP 97.6; TEMP 99.7; O2SAT 95
[2023-04-28] MEDS: ACETAMINOPHEN 650 MG/20.3 ML UDC PEG PRN (22:02)
[2023-04-29] VITALS: BP 95/66; TEMP 97.6; O2SAT 96
[2023-04-29] MEDS: BACLOFEN (10 MG) 10 MG TABLET GT SCH ×5 (00:04→23:39)
[2023-04-29 04:00] VITALS: BP 105/65; TEMP 98.9; O2SAT 97
[2023-04-29] MEDS: CEFEPIME 2 GM in IV D5W 100 ML IV SCH ×3 (05:14→20:54)
[2023-04-29 06:13] LABS: BASOPHILS % (AUTO) 0.6 % (0.0-2.0); EOSINOPHILS # (AUTO) 0.2 K/uL (0.0-0.7); EOSINOPHILS % (AUTO) 3.7 % (0.0-6.0); HEMATOCRIT 35 % (39-51); HEMOGLOBIN 11.7 g/dL (13.5-17.5); LYMPHOCYTES # (AUTO) 1.2 K/uL (0.8-4.8); MEAN CORPUSCULAR HEMOGLOBIN 30 PG (26.0-33.0); MEAN CORPUSCULAR HGB CONC 33 g/dl (31.0-36.0); MEAN CORPUSCULAR VOLUME 91 fL (80-96); MONOCYTES # (AUTO) 0.6 K/uL (0.1-1.30); MONOCYTES % (AUTO) 8.1 % (2.0-12.0); NEUTROPHILS # (AUTO) 4.8 K/uL (1.8-8.9); NEUTROPHILS % (AUTO) 70.6 % (43.0-81.0); PLATELET COUNT (AUTO) 277 K/uL (150-450); RED BLOOD CELL COUNT(AUTO) 3.91 MIL/uL (4.5-6.0); RED CELL DISTRIBUTION WIDTH 15.6 % (11.5-15.0); WHITE BLOOD COUNT (AUTO) 6.8 K/uL (4.3-11.0)
[2023-04-29 06:23] LABS: CALCIUM, SERUM 9.1 mg/dL (8.5-10.1); CREATININE 0.6 mg/dL (0.6-1.3); POTASSIUM 3.6 mmol/L (3.5-5.1)
[2023-04-29 08:00] VITALS: BP 100/64; TEMP 99; O2SAT 90
[2023-04-29] MEDS: ACETYLCYSTEINE 20% SOLN 800 MG/4 ML VIAL NEB SCH ×3 (08:07→23:58)
[2023-04-29] MEDS: ALBUTEROL FS 2.5 MG/3 ML VIAL.NEB NEB PRN ×3 (08:08→23:58)
[2023-04-29] MEDS: IPRATROPIUM NEB FS 0.5 MG/2.5 ML AMPUL.NEB NEB PRN ×2 (08:08→15:55)
[2023-04-29] MEDS: CHLORHEXIDINE GLUCONATE 15 ML UDC MM SCH ×2 (09:05→20:54)
[2023-04-29] MEDS: LEVETIRACETAM SOL (5 ML) 100 MG/ML UDC GT SCH ×2 (09:06→20:54)
[2023-04-29] MEDS: DOCUSATE SODIUM LIQ 100 MG/10 ML UDC GT SCH (09:06)
[2023-04-29] MEDS: HEPARIN SODIUM, PORCINE 5000 UNITS/1 ML VIAL SQ SCH ×2 (09:08→20:55)
[2023-04-29 12:00] VITALS: BP 111/74; TEMP 99.5; O2SAT 98
[2023-04-29] MEDS: GLUCERNA 1.2 1,000 ML BOTTLE NG PRN (13:09)
[2023-04-29 16:00] VITALS: BP 130/74; TEMP 99.5; O2SAT 98
[2023-04-29] MEDS: ACETAMINOPHEN 650 MG/20.3 ML UDC PEG PRN ×2 (17:09→20:54)
[2023-04-29 20:00] VITALS: BP 98/68; TEMP 99.1; O2SAT 96
[2023-04-30] VITALS (7 sets, daily range): BP systolic 98–128; BP diastolic 67–88; TEMP 96.5–99; O2SAT 96–100
[2023-04-30] MEDS: CEFEPIME 2 GM in IV D5W 100 ML IV SCH ×3 (04:10→20:38)
[2023-04-30] MEDS: BACLOFEN (10 MG) 10 MG TABLET GT SCH ×3 (05:25→17:29)
[2023-04-30 05:51] LABS: BASOPHILS % (AUTO) 0.4 % (0.0-2.0); EOSINOPHILS # (AUTO) 0.2 K/uL (0.0-0.7); EOSINOPHILS % (AUTO) 3.7 % (0.0-6.0); HEMATOCRIT 36 % (39-51); HEMOGLOBIN 11.9 g/dL (13.5-17.5); LYMPHOCYTES # (AUTO) 0.8 K/uL (0.8-4.8); LYMPHOCYTES % (AUTO) 12.3 % (20.0-44.0); MEAN CORPUSCULAR HEMOGLOBIN 30 PG (26.0-33.0); MEAN CORPUSCULAR HGB CONC 33 g/dl (31.0-36.0); MEAN CORPUSCULAR VOLUME 91 fL (80-96); MONOCYTES # (AUTO) 0.4 K/uL (0.1-1.30); NEUTROPHILS # (AUTO) 4.9 K/uL (1.8-8.9); NEUTROPHILS % (AUTO) 76.6 % (43.0-81.0); PLATELET COUNT (AUTO) 262 K/uL (150-450); RED BLOOD CELL COUNT(AUTO) 3.94 MIL/uL (4.5-6.0); RED CELL DISTRIBUTION WIDTH 15.5 % (11.5-15.0); WHITE BLOOD COUNT (AUTO) 6.4 K/uL (4.3-11.0)
[2023-04-30] MEDS: ACETYLCYSTEINE 20% SOLN 800 MG/4 ML VIAL NEB SCH ×3 (07:54→23:56)
[2023-04-30] MEDS: DOCUSATE SODIUM LIQ 100 MG/10 ML UDC GT SCH (08:14)
[2023-04-30] MEDS: CHLORHEXIDINE GLUCONATE 15 ML UDC MM SCH ×2 (08:14→20:38)
[2023-04-30] MEDS: LEVETIRACETAM SOL (5 ML) 100 MG/ML UDC GT SCH ×2 (08:17→20:38)
[2023-04-30] MEDS: HEPARIN SODIUM, PORCINE 5000 UNITS/1 ML VIAL SQ SCH ×2 (08:19→20:37)
[2023-04-30 12:26] LABS: ABG PCO2 38.6 mmHg (35.0-45.0); ABG PH 7.488 (7.350-7.450); ABG PO2 91.3 mmHg (75.0-100.0); ABG TOTAL HEMOGLOBIN 13.2 G/dL (13.5-18.0); AaDO2 149.5 mmHg; COHb 0.4 % (0.5-1.5); MetHb 0.2 % (0.0-1.5); O2Hb 96.4 % (94.0-97.0); PEEP,BG 5 cm H2O; SITE, ABG Right Radial; VT, ABG 500 mL
[2023-04-30] MEDS: GLUCERNA 1.2 1,000 ML BOTTLE NG PRN (12:31)
[2023-04-30] MEDS: ACETAMINOPHEN 650 MG/20.3 ML UDC PEG PRN (15:31)
[2023-04-30] MEDS: IPRATROPIUM NEB FS 0.5 MG/2.5 ML AMPUL.NEB NEB PRN (23:56)
[2023-04-30] MEDS: ALBUTEROL FS 2.5 MG/3 ML VIAL.NEB NEB PRN (23:56)
[2023-05-01] VITALS: BP 103/63; TEMP 98.6; O2SAT 7; O2SAT 97
[2023-05-01] MEDS: BACLOFEN (10 MG) 10 MG TABLET GT SCH ×4 (00:16→17:14)
[2023-05-01 04:00] VITALS: BP 113/73; TEMP 99; O2SAT 95
[2023-05-01] MEDS: CEFEPIME 2 GM in IV D5W 100 ML IV SCH ×3 (04:12→21:15)
[2023-05-01] MEDS: GLUCERNA 1.2 1,000 ML BOTTLE NG PRN (05:44)
[2023-05-01 07:09] LABS: BASOPHILS % (AUTO) 0.3 % (0.0-2.0); EOSINOPHILS # (AUTO) 0.2 K/uL (0.0-0.7); EOSINOPHILS % (AUTO) 3.4 % (0.0-6.0); HEMATOCRIT 37 % (39-51); HEMOGLOBIN 12.1 g/dL (13.5-17.5); LYMPHOCYTES # (AUTO) 0.8 K/uL (0.8-4.8); LYMPHOCYTES % (AUTO) 10.8 % (20.0-44.0); MEAN CORPUSCULAR HEMOGLOBIN 30 PG (26.0-33.0); MEAN CORPUSCULAR HGB CONC 33 g/dl (31.0-36.0); MEAN CORPUSCULAR VOLUME 92 fL (80-96); MONOCYTES # (AUTO) 0.5 K/uL (0.1-1.30); MONOCYTES % (AUTO) 7.4 % (2.0-12.0); NEUTROPHILS # (AUTO) 5.7 K/uL (1.8-8.9); NEUTROPHILS % (AUTO) 78.1 % (43.0-81.0); PLATELET COUNT (AUTO) 275 K/uL (150-450); RED BLOOD CELL COUNT(AUTO) 4.08 MIL/uL (4.5-6.0); RED CELL DISTRIBUTION WIDTH 16.3 % (11.5-15.0); WHITE BLOOD COUNT (AUTO) 7.3 K/uL (4.3-11.0)
[2023-05-01] MEDS: ACETYLCYSTEINE 20% SOLN 800 MG/4 ML VIAL NEB SCH ×2 (07:32→16:01)
[2023-05-01 08:00] VITALS: BP 117/61; TEMP 98.1; O2SAT 95
[2023-05-01] MEDS: DOCUSATE SODIUM LIQ 100 MG/10 ML UDC GT SCH (08:12)
[2023-05-01] MEDS: CHLORHEXIDINE GLUCONATE 15 ML UDC MM SCH ×2 (08:12→21:14)
[2023-05-01] MEDS: HEPARIN SODIUM, PORCINE 5000 UNITS/1 ML VIAL SQ SCH (08:13)
[2023-05-01] MEDS: LEVETIRACETAM SOL (5 ML) 100 MG/ML UDC GT SCH ×2 (08:23→21:15)
[2023-05-01] MEDS ORDERED: LACTULOSE 10 G/15 ML UDC (PYXIS) GT ONE (10:30)
[2023-05-01] MEDS: DOCUSATE SODIUM LIQ 100 MG/10 ML UDC NG SCH ×2 (11:39→21:14)
[2023-05-01 12:00] VITALS: BP 106/60; TEMP 100.8; O2SAT 96
[2023-05-01 16:00] VITALS: BP 114/67; TEMP 100; O2SAT 99
[2023-05-01 20:00] VITALS: BP 111/79; TEMP 98.2; O2SAT 98
[2023-05-02] VITALS: BP 110/79; TEMP 99.1; O2SAT 95
[2023-05-02] MEDS: ACETYLCYSTEINE 20% SOLN 800 MG/4 ML VIAL NEB SCH ×4 (00:23→23:34)
[2023-05-02] MEDS: BACLOFEN (10 MG) 10 MG TABLET GT SCH ×5 (00:49→23:09)
[2023-05-02 04:00] VITALS: BP 107/74; TEMP 98.8; O2SAT 94
[2023-05-02] MEDS: CEFEPIME 2 GM in IV D5W 100 ML IV SCH ×3 (04:27→22:00)
[2023-05-02 05:59] LABS: BASOPHILS % (AUTO) 0.5 % (0.0-2.0); EOSINOPHILS # (AUTO) 0.3 K/uL (0.0-0.7); HEMATOCRIT 35 % (39-51); HEMOGLOBIN 11.6 g/dL (13.5-17.5); LYMPHOCYTES # (AUTO) 0.9 K/uL (0.8-4.8); LYMPHOCYTES % (AUTO) 10.5 % (20.0-44.0); MEAN CORPUSCULAR HEMOGLOBIN 30 PG (26.0-33.0); MEAN CORPUSCULAR HGB CONC 33 g/dl (31.0-36.0); MEAN CORPUSCULAR VOLUME 91 fL (80-96); MONOCYTES # (AUTO) 0.6 K/uL (0.1-1.30); NEUTROPHILS # (AUTO) 6.7 K/uL (1.8-8.9); PLATELET COUNT (AUTO) 278 K/uL (150-450); RED BLOOD CELL COUNT(AUTO) 3.89 MIL/uL (4.5-6.0); RED CELL DISTRIBUTION WIDTH 15.3 % (11.5-15.0); WHITE BLOOD COUNT (AUTO) 8.5 K/uL (4.3-11.0)
[2023-05-02 08:00] VITALS: BP 114/72; TEMP 98.7; O2SAT 94
[2023-05-02] MEDS: DOCUSATE SODIUM LIQ 100 MG/10 ML UDC NG SCH (09:00)
[2023-05-02] MEDS: LEVETIRACETAM SOL (5 ML) 100 MG/ML UDC GT SCH ×2 (09:24→22:00)
[2023-05-02] MEDS: CHLORHEXIDINE GLUCONATE 15 ML UDC MM SCH ×2 (09:25→22:01)
[2023-05-02] MEDS: DOCUSATE SODIUM LIQ 100 MG/10 ML UDC GT SCH (09:25)
[2023-05-02 12:00] VITALS: BP 104/61; TEMP 98.6; O2SAT 95
[2023-05-02 16:00] VITALS: BP 106/70; TEMP 98.1; O2SAT 98
[2023-05-02] MEDS ORDERED: IV NS 0.9% 250 ML IV PRN (18:00)
[2023-05-02 20:00] VITALS: BP 111/73; TEMP 99.1; O2SAT 93
[2023-05-03] VITALS: BP 115/73; TEMP 98.8; O2SAT 99
[2023-05-03 04:00] VITALS: BP 111/92; TEMP 99; O2SAT 98
[2023-05-03] MEDS: CEFEPIME 2 GM in IV D5W 100 ML IV SCH ×3 (05:07→21:27)
[2023-05-03] MEDS: BACLOFEN (10 MG) 10 MG TABLET GT SCH ×4 (05:09→23:22)
[2023-05-03] MEDS: GLUCERNA 1.2 1,000 ML BOTTLE NG PRN (06:44)
[2023-05-03 06:48] LABS: CALCIUM, SERUM 8.7 mg/dL (8.5-10.1); CREATININE 0.7 mg/dL (0.6-1.3); MAGNESIUM 2.4 mg/dL (1.8-2.4); PHOSPHORUS 3.1 mg/dL (2.5-4.9); POTASSIUM 4.5 mmol/L (3.5-5.1)
[2023-05-03 06:49] LABS: BASOPHILS % (AUTO) 0.5 % (0.0-2.0); EOSINOPHILS # (AUTO) 0.3 K/uL (0.0-0.7); EOSINOPHILS % (AUTO) 3.9 % (0.0-6.0); HEMATOCRIT 35 % (39-51); HEMOGLOBIN 11.6 g/dL (13.5-17.5); LYMPHOCYTES # (AUTO) 0.8 K/uL (0.8-4.8); LYMPHOCYTES % (AUTO) 10.3 % (20.0-44.0); MEAN CORPUSCULAR HEMOGLOBIN 30 PG (26.0-33.0); MEAN CORPUSCULAR HGB CONC 33 g/dl (31.0-36.0); MEAN CORPUSCULAR VOLUME 91 fL (80-96); MONOCYTES # (AUTO) 0.6 K/uL (0.1-1.30); MONOCYTES % (AUTO) 7.4 % (2.0-12.0); NEUTROPHILS # (AUTO) 6.3 K/uL (1.8-8.9); NEUTROPHILS % (AUTO) 77.9 % (43.0-81.0); PLATELET COUNT (AUTO) 281 K/uL (150-450); RED BLOOD CELL COUNT(AUTO) 3.87 MIL/uL (4.5-6.0); RED CELL DISTRIBUTION WIDTH 15.8 % (11.5-15.0); WHITE BLOOD COUNT (AUTO) 8.1 K/uL (4.3-11.0)
[2023-05-03 08:00] VITALS: BP 106/71; TEMP 99.1; O2SAT 99
[2023-05-03] MEDS: ACETYLCYSTEINE 20% SOLN 800 MG/4 ML VIAL NEB SCH ×3 (08:23→23:56)
[2023-05-03] MEDS: LEVETIRACETAM SOL (5 ML) 100 MG/ML UDC GT SCH ×2 (08:55→21:27)
[2023-05-03] MEDS: DOCUSATE SODIUM LIQ 100 MG/10 ML UDC GT SCH (08:56)
[2023-05-03] MEDS: CHLORHEXIDINE GLUCONATE 15 ML UDC MM SCH ×2 (08:56→21:25)
[2023-05-03 09:15] LABS: ABG BASE EXCESS 4.4 mmol/L; ABG OXYGEN SATURATION 97.5 % (92.0-98.5); ABG PH 7.453 (7.350-7.450); ABG PO2 100.1 mmHg (75.0-100.0); ABG TOTAL HEMOGLOBIN 12.4 G/dL (13.5-18.0); AaDO2 136.8 mmHg; COHb 0.2 % (0.5-1.5); MetHb 0.1 % (0.0-1.5); O2Hb 97.2 % (94.0-97.0); PEEP,BG 5 cm H2O; SITE, ABG Right Radial; VT, ABG 450 mL
[2023-05-03 12:00] VITALS: BP 110/57; TEMP 98.8; O2SAT 100
[2023-05-03 16:00] VITALS: BP 112/70; TEMP 99; O2SAT 100
[2023-05-03 20:00] VITALS: BP 92/69; TEMP 99.3; O2SAT 98
[2023-05-04] VITALS: BP 99/69; TEMP 99.1; O2SAT 98
[2023-05-04 04:00] VITALS: BP 96/65; TEMP 98.4; O2SAT 99
[2023-05-04] MEDS: CEFEPIME 2 GM in IV D5W 100 ML IV SCH ×3 (04:32→21:28)
[2023-05-04] MEDS: BACLOFEN (10 MG) 10 MG TABLET GT SCH ×3 (06:00→17:53)
[2023-05-04] MEDS: ACETYLCYSTEINE 20% SOLN 800 MG/4 ML VIAL NEB SCH ×2 (07:35→14:50)
[2023-05-04 08:00] VITALS: BP 138/80; TEMP 98.4; O2SAT 99
[2023-05-04] MEDS: LEVETIRACETAM SOL (5 ML) 100 MG/ML UDC GT SCH ×2 (08:36→21:29)
[2023-05-04] MEDS: CHLORHEXIDINE GLUCONATE 15 ML UDC MM SCH ×2 (08:36→21:29)
[2023-05-04] MEDS: DOCUSATE SODIUM LIQ 100 MG/10 ML UDC GT SCH (08:36)
[2023-05-04 12:00] VITALS: BP 110/75; TEMP 98.4; O2SAT 99
[2023-05-04] MEDS ORDERED: DIATR MEGLU/DIATRIZOATE SODIUM 30 ML BOTTLE (GASTROGRAPHIN) ONE (15:47)
[2023-05-04 16:00] VITALS: BP 129/79; TEMP 98.5; O2SAT 99
[2023-05-04] MEDS ORDERED: GLUCERNA 1.2 1,000 ML BOTTLE GT PRN (18:00)
[2023-05-04 20:00] VITALS: BP 97/71; TEMP 98.9; O2SAT 100
[2023-05-05] VITALS: BP 110/73; TEMP 98.3; O2SAT 100
[2023-05-05] MEDS: ACETYLCYSTEINE 20% SOLN 800 MG/4 ML VIAL NEB SCH ×4 (00:21→23:54)
[2023-05-05] MEDS: BACLOFEN (10 MG) 10 MG TABLET GT SCH ×5 (00:24→23:41)
[2023-05-05 04:00] VITALS: BP 105/70; TEMP 98; O2SAT 100
[2023-05-05] MEDS: CEFEPIME 2 GM in IV D5W 100 ML IV SCH ×3 (04:09→20:47)
[2023-05-05] MEDS: IPRATROPIUM NEB FS 0.5 MG/2.5 ML AMPUL.NEB NEB PRN (07:57)
[2023-05-05] MEDS: ALBUTEROL FS 2.5 MG/3 ML VIAL.NEB NEB PRN ×2 (07:57→16:15)
[2023-05-05 08:00] VITALS: BP 104/73; TEMP 98.3; O2SAT 99
[2023-05-05] MEDS: DOCUSATE SODIUM LIQ 100 MG/10 ML UDC GT SCH (09:02)
[2023-05-05] MEDS: LEVETIRACETAM SOL (5 ML) 100 MG/ML UDC GT SCH ×2 (09:03→20:47)
[2023-05-05] MEDS: CHLORHEXIDINE GLUCONATE 15 ML UDC MM SCH ×2 (09:03→20:48)
[2023-05-05 12:00] VITALS: BP 107/75; TEMP 98.5; O2SAT 99
[2023-05-05 16:00] VITALS: BP 101/67; TEMP 98.7; O2SAT 100
[2023-05-05] MEDS: GLUCERNA 1.2 1,000 ML BOTTLE NG PRN (17:52)
[2023-05-05 20:00] VITALS: BP 107/69; TEMP 97.5; O2SAT 100
[2023-05-06] VITALS: BP 119/76; TEMP 98.4; O2SAT 99
[2023-05-06 04:00] VITALS: BP 103/64; TEMP 98.2; O2SAT 100
[2023-05-06] MEDS: CEFEPIME 2 GM in IV D5W 100 ML IV SCH ×3 (04:22→21:45)
[2023-05-06] MEDS: BACLOFEN (10 MG) 10 MG TABLET GT SCH ×3 (05:04→16:55)
[2023-05-06 08:00] VITALS: BP 123/67; TEMP 98.4; O2SAT 100
[2023-05-06] MEDS: CHLORHEXIDINE GLUCONATE 15 ML UDC MM SCH ×2 (08:15→21:45)
[2023-05-06] MEDS: DOCUSATE SODIUM LIQ 100 MG/10 ML UDC GT SCH (08:15)
[2023-05-06] MEDS: LEVETIRACETAM SOL (5 ML) 100 MG/ML UDC GT SCH ×2 (08:15→21:45)
[2023-05-06] MEDS: ACETYLCYSTEINE 20% SOLN 800 MG/4 ML VIAL NEB SCH ×3 (08:18→22:37)
[2023-05-06] MEDS: IPRATROPIUM NEB FS 0.5 MG/2.5 ML AMPUL.NEB NEB PRN ×2 (08:18→15:25)
[2023-05-06] MEDS: ALBUTEROL FS 2.5 MG/3 ML VIAL.NEB NEB PRN ×2 (08:18→15:25)
[2023-05-06 12:00] VITALS: BP 137/72; TEMP 98.2; O2SAT 100
[2023-05-06] MEDS: GLUCERNA 1.2 1,000 ML BOTTLE NG PRN (12:29)
[2023-05-06 16:00] VITALS: BP 130/65; TEMP 98.4; O2SAT 100
[2023-05-06 20:00] VITALS: BP 119/77; TEMP 98.2; O2SAT 100
[2023-05-07] VITALS: BP 131/66; TEMP 98; O2SAT 96
[2023-05-07] MEDS: BACLOFEN (10 MG) 10 MG TABLET GT SCH ×5 (00:54→23:11)
[2023-05-07 04:00] VITALS: BP 130/65; TEMP 97.5; O2SAT 100
[2023-05-07] MEDS: CEFEPIME 2 GM in IV D5W 100 ML IV SCH ×3 (05:29→20:03)
[2023-05-07] MEDS: ACETYLCYSTEINE 20% SOLN 800 MG/4 ML VIAL NEB SCH ×3 (07:52→23:37)
[2023-05-07 08:00] VITALS: BP 99/62; TEMP 99.5; O2SAT 100
[2023-05-07] MEDS: GLUCERNA 1.2 1,000 ML BOTTLE NG PRN (08:31)
[2023-05-07] MEDS: CHLORHEXIDINE GLUCONATE 15 ML UDC MM SCH ×2 (09:45→20:03)
[2023-05-07] MEDS: LEVETIRACETAM SOL (5 ML) 100 MG/ML UDC GT SCH ×2 (09:45→20:03)
[2023-05-07] MEDS: DOCUSATE SODIUM LIQ 100 MG/10 ML UDC GT SCH (09:45)
[2023-05-07 12:00] VITALS: BP 105/67; TEMP 98.6; O2SAT 100
[2023-05-07 15:05] LABS: BASOPHILS % (AUTO) 0.4 % (0.0-2.0); EOSINOPHILS # (AUTO) 0.2 K/uL (0.0-0.7); HEMATOCRIT 40 % (39-51); LYMPHOCYTES # (AUTO) 0.9 K/uL (0.8-4.8); LYMPHOCYTES % (AUTO) 9.6 % (20.0-44.0); MEAN CORPUSCULAR HEMOGLOBIN 30 PG (26.0-33.0); MEAN CORPUSCULAR HGB CONC 33 g/dl (31.0-36.0); MEAN CORPUSCULAR VOLUME 91 fL (80-96); MONOCYTES # (AUTO) 0.5 K/uL (0.1-1.30); MONOCYTES % (AUTO) 5.6 % (2.0-12.0); NEUTROPHILS # (AUTO) 7.7 K/uL (1.8-8.9); NEUTROPHILS % (AUTO) 82.4 % (43.0-81.0); PLATELET COUNT (AUTO) 352 K/uL (150-450); RED BLOOD CELL COUNT(AUTO) 4.38 MIL/uL (4.5-6.0); RED CELL DISTRIBUTION WIDTH 16.1 % (11.5-15.0); WHITE BLOOD COUNT (AUTO) 9.3 K/uL (4.3-11.0)
[2023-05-07 15:17] LABS: ALBUMIN 2.6 g/dL (3.4-5.0); BILIRUBIN,TOTAL 0.4 mg/dL (0.2-1.0); CALCIUM, SERUM 9.4 mg/dL (8.5-10.1); CREATININE 0.9 mg/dL (0.6-1.3); MAGNESIUM 2.3 mg/dL (1.8-2.4); PHOSPHORUS 4.2 mg/dL (2.5-4.9); POTASSIUM 3.9 mmol/L (3.5-5.1); TOTAL PROTEIN, SERUM 8.4 g/dL (6.4-8.2)
[2023-05-07 16:00] VITALS: BP 107/62; TEMP 100; O2SAT 98
[2023-05-07 16:17] LABS: ANISOCYTOSIS 1+; BAND % (MANUAL) 2 % (0.0-5.0); EOSINOPHILS % (MANUAL) 3 % (0-4); LYMPHOCYTES % (MANUAL) 8 % (16-48); MONOCYTES % (MANUAL) 6 % (0-11.0); NEUTROPHILS % (MANUAL) 81 (42-76); PLATELET ESTIMATE ADEQU
[2023-05-07 20:00] VITALS: BP 125/67; TEMP 99.7; O2SAT 97
[2023-05-08] VITALS: BP 102/67; TEMP 99.5; O2SAT 96
[2023-05-08 04:00] VITALS: BP 122/66; TEMP 99.7; O2SAT 98
[2023-05-08] MEDS: BACLOFEN (10 MG) 10 MG TABLET GT SCH ×3 (05:06→17:20)
[2023-05-08] MEDS: GLUCERNA 1.2 1,000 ML BOTTLE NG PRN (05:06)
[2023-05-08 06:38] LABS: BASOPHILS % (AUTO) 0.3 % (0.0-2.0); EOSINOPHILS # (AUTO) 0.2 K/uL (0.0-0.7); EOSINOPHILS % (AUTO) 1.8 % (0.0-6.0); HEMATOCRIT 38 % (39-51); HEMOGLOBIN 12.3 g/dL (13.5-17.5); LYMPHOCYTES # (AUTO) 1.1 K/uL (0.8-4.8); LYMPHOCYTES % (AUTO) 9.4 % (20.0-44.0); MEAN CORPUSCULAR HEMOGLOBIN 29 PG (26.0-33.0); MEAN CORPUSCULAR HGB CONC 32 g/dl (31.0-36.0); MEAN CORPUSCULAR VOLUME 92 fL (80-96); MONOCYTES # (AUTO) 0.7 K/uL (0.1-1.30); MONOCYTES % (AUTO) 6.1 % (2.0-12.0); NEUTROPHILS # (AUTO) 9.3 K/uL (1.8-8.9); NEUTROPHILS % (AUTO) 82.4 % (43.0-81.0); PLATELET COUNT (AUTO) 288 K/uL (150-450); RED BLOOD CELL COUNT(AUTO) 4.19 MIL/uL (4.5-6.0); RED CELL DISTRIBUTION WIDTH 16.1 % (11.5-15.0); WHITE BLOOD COUNT (AUTO) 11.3 K/uL (4.3-11.0)
[2023-05-08 07:24] LABS: CALCIUM, SERUM 9.2 mg/dL (8.5-10.1); CREATININE 0.8 mg/dL (0.6-1.3); MAGNESIUM 2.7 mg/dL (1.8-2.4); PHOSPHORUS 3.7 mg/dL (2.5-4.9); POTASSIUM 4.5 mmol/L (3.5-5.1)
[2023-05-08] MEDS: ACETYLCYSTEINE 20% SOLN 800 MG/4 ML VIAL NEB SCH ×3 (07:40→23:32)
[2023-05-08 08:00] VITALS: BP 102/67; TEMP 99.5; O2SAT 96
[2023-05-08] MEDS: DOCUSATE SODIUM LIQ 100 MG/10 ML UDC GT SCH (09:22)
[2023-05-08] MEDS: LEVETIRACETAM SOL (5 ML) 100 MG/ML UDC GT SCH ×2 (09:22→21:49)
[2023-05-08] MEDS: CHLORHEXIDINE GLUCONATE 15 ML UDC MM SCH ×2 (09:22→21:49)
[2023-05-08 13:02] VITALS: BP 116/72; TEMP 99.5; O2SAT 96
[2023-05-08 16:00] VITALS: BP 123/74; TEMP 98.9; O2SAT 96
[2023-05-08 20:00] VITALS: BP 106/70; TEMP 99; O2SAT 97
[2023-05-09] VITALS: BP 100/74; TEMP 99; O2SAT 98
[2023-05-09] MEDS: BACLOFEN (10 MG) 10 MG TABLET GT SCH ×4 (00:58→17:09)
[2023-05-09 07:44] VITALS: BP 107/74; TEMP 98.6; O2SAT 99
[2023-05-09] MEDS: ACETYLCYSTEINE 20% SOLN 800 MG/4 ML VIAL NEB SCH ×2 (07:52→15:48)
[2023-05-09 08:00] VITALS: BP 103/66; TEMP 98.6; O2SAT 99
[2023-05-09] MEDS: DOCUSATE SODIUM LIQ 100 MG/10 ML UDC GT SCH (08:21)
[2023-05-09] MEDS: CHLORHEXIDINE GLUCONATE 15 ML UDC MM SCH ×2 (08:21→21:38)
[2023-05-09] MEDS: LEVETIRACETAM SOL (5 ML) 100 MG/ML UDC GT SCH ×2 (08:21→21:38)
[2023-05-09 12:00] VITALS: BP 101/68; TEMP 98.6; O2SAT 99
[2023-05-09] MEDS ORDERED: ALTEPLASE CATHFLO 2 MG/VIAL XX ONE (14:30)
[2023-05-09 16:53] VITALS: BP 106/68; TEMP 98.6; O2SAT 99
[2023-05-09 20:00] VITALS: BP 98/71; TEMP 98.8; O2SAT 100
[2023-05-10] VITALS (8 sets, daily range): BP systolic 100–129; BP diastolic 68–101; TEMP 98–99.7; O2SAT 96–100
[2023-05-10] MEDS: ACETYLCYSTEINE 20% SOLN 800 MG/4 ML VIAL NEB SCH ×4 (00:08→23:20)
[2023-05-10] MEDS: BACLOFEN (10 MG) 10 MG TABLET GT SCH ×4 (00:30→18:05)
[2023-05-10] MEDS: DOCUSATE SODIUM LIQ 100 MG/10 ML UDC GT SCH (08:09)
[2023-05-10] MEDS: CHLORHEXIDINE GLUCONATE 15 ML UDC MM SCH ×2 (08:10→21:04)
[2023-05-10] MEDS: LEVETIRACETAM SOL (5 ML) 100 MG/ML UDC GT SCH ×2 (08:10→21:04)
[2023-05-10] MEDS: GLUCERNA 1.2 1,000 ML BOTTLE NG PRN (08:18)
[2023-05-11] VITALS (40 sets, daily range): BP systolic 95–134; BP diastolic 69–93; TEMP 97.5–99.1; O2SAT 94–98
[2023-05-11] MEDS: BACLOFEN (10 MG) 10 MG TABLET GT SCH ×5 (00:27→23:50)
[2023-05-11] MEDS: GLUCERNA 1.2 1,000 ML BOTTLE NG PRN (04:45)
[2023-05-11 07:08] LABS: BASOPHILS % (AUTO) 0.2 % (0.0-2.0); HEMATOCRIT 42 % (39-51); HEMOGLOBIN 13.4 g/dL (13.5-17.5); LYMPHOCYTES # (AUTO) 0.6 K/uL (0.8-4.8); LYMPHOCYTES % (AUTO) 2.8 % (20.0-44.0); MEAN CORPUSCULAR HEMOGLOBIN 29 PG (26.0-33.0); MEAN CORPUSCULAR HGB CONC 32 g/dl (31.0-36.0); MEAN CORPUSCULAR VOLUME 91 fL (80-96); MONOCYTES # (AUTO) 0.8 K/uL (0.1-1.30); NEUTROPHILS # (AUTO) 18.3 K/uL (1.8-8.9); PLATELET COUNT (AUTO) 378 K/uL (150-450); RED BLOOD CELL COUNT(AUTO) 4.57 MIL/uL (4.5-6.0); RED CELL DISTRIBUTION WIDTH 16.1 % (11.5-15.0); WHITE BLOOD COUNT (AUTO) 19.6 K/uL (4.3-11.0)
[2023-05-11 07:19] LABS: CALCIUM, SERUM 9.8 mg/dL (8.5-10.1); CREATININE 0.9 mg/dL (0.6-1.3); MAGNESIUM 2.6 mg/dL (1.8-2.4); PHOSPHORUS 4.8 mg/dL (2.5-4.9); POTASSIUM 4.5 mmol/L (3.5-5.1)
[2023-05-11] MEDS: ACETYLCYSTEINE 20% SOLN 800 MG/4 ML VIAL NEB SCH ×3 (08:03→23:20)
[2023-05-11] MEDS: CHLORHEXIDINE GLUCONATE 15 ML UDC MM SCH ×2 (08:39→20:58)
[2023-05-11] MEDS: DOCUSATE SODIUM LIQ 100 MG/10 ML UDC GT SCH (08:39)
[2023-05-11] MEDS: LEVETIRACETAM SOL (5 ML) 100 MG/ML UDC GT SCH ×2 (08:39→20:58)
[2023-05-11] MEDS ORDERED: MORPHINE SULFATE INJ 2 MG/ML DISP.SYRIN IV ONE (12:30)
[2023-05-11] MEDS ORDERED: LORAZEPAM INJ 2 MG/ML VIAL IVP PRN (15:00)
[2023-05-11] MEDS: METRONIDAZOLE 500MG/ NS 100ML 500 MG in PREMIX 1 EA IV SCH ×2 (15:00→23:49)
[2023-05-11] MEDS ORDERED: MORPHINE SULFATE INJ 4 MG/ML DISP.SYRIN IV PRN (15:00)
[2023-05-11] MEDS: IPRATROPIUM NEB FS 0.5 MG/2.5 ML AMPUL.NEB NEB SCH ×2 (15:58→19:43)
[2023-05-11] MEDS: VANCOMYCIN HCL 125 MG/2.5 ML ORAL.SUSP PO SCH ×3 (18:53→23:49)
[2023-05-11] MEDS: ACETAMINOPHEN 650 MG/20.3 ML UDC PEG PRN (22:20)
[2023-05-12] VITALS (28 sets, daily range): BP systolic 85–105; BP diastolic 54–75; TEMP 98.6–99; O2SAT 95–98
[2023-05-12] MEDS: IPRATROPIUM NEB FS 0.5 MG/2.5 ML AMPUL.NEB NEB SCH ×4 (01:23→19:32)
[2023-05-12 04:49] LABS: BASOPHILS # (AUTO) 0.1 K/uL (0.0-0.2); BASOPHILS % (AUTO) 0.5 % (0.0-2.0); EOSINOPHILS # (AUTO) 0.1 K/uL (0.0-0.7); EOSINOPHILS % (AUTO) 0.4 % (0.0-6.0); HEMATOCRIT 37 % (39-51); HEMOGLOBIN 11.8 g/dL (13.5-17.5); LYMPHOCYTES # (AUTO) 1.6 K/uL (0.8-4.8); LYMPHOCYTES % (AUTO) 8.2 % (20.0-44.0); MEAN CORPUSCULAR HEMOGLOBIN 29 PG (26.0-33.0); MEAN CORPUSCULAR HGB CONC 32 g/dl (31.0-36.0); MEAN CORPUSCULAR VOLUME 91 fL (80-96); MONOCYTES # (AUTO) 0.9 K/uL (0.1-1.30); MONOCYTES % (AUTO) 4.5 % (2.0-12.0); NEUTROPHILS # (AUTO) 16.8 K/uL (1.8-8.9); NEUTROPHILS % (AUTO) 86.4 % (43.0-81.0); RED BLOOD CELL COUNT(AUTO) 4.02 MIL/uL (4.5-6.0); RED CELL DISTRIBUTION WIDTH 16.2 % (11.5-15.0); WHITE BLOOD COUNT (AUTO) 19.5 K/uL (4.3-11.0)
[2023-05-12 04:53] LABS: CREATININE 0.9 mg/dL (0.6-1.3); MAGNESIUM 2.5 mg/dL (1.8-2.4); POTASSIUM 3.9 mmol/L (3.5-5.1)
[2023-05-12 05:03] LABS: PLATELET COUNT (AUTO) 269 K/uL (150-450)
[2023-05-12] MEDS: VANCOMYCIN HCL 125 MG/2.5 ML ORAL.SUSP PO SCH ×4 (05:15→23:25)
[2023-05-12] MEDS: BACLOFEN (10 MG) 10 MG TABLET GT SCH ×4 (05:15→23:25)
[2023-05-12] MEDS: METRONIDAZOLE 500MG/ NS 100ML 500 MG in PREMIX 1 EA IV SCH ×3 (05:52→23:25)
[2023-05-12] MEDS: ACETYLCYSTEINE 20% SOLN 800 MG/4 ML VIAL NEB SCH ×3 (07:35→23:08)
[2023-05-12] MEDS: CHLORHEXIDINE GLUCONATE 15 ML UDC MM SCH ×2 (08:26→20:31)
[2023-05-12] MEDS: LEVETIRACETAM SOL (5 ML) 100 MG/ML UDC GT SCH ×2 (08:26→20:31)
[2023-05-12] MEDS: DOCUSATE SODIUM LIQ 100 MG/10 ML UDC GT SCH (08:27)
[2023-05-12 11:33] LABS: CREATININE, URINE 164.3 MG/DL (30.0-125.0); URINE TOTAL PROTEIN 163.6 mg/dL (0-11.9)
[2023-05-12 11:39] LABS: APPEARANCE,URINE CLEAR (CLEAR); BILIRUBIN,URINE 1+ (NEGATIVE); BLOOD, URINE 2+ Ery/uL (NEGATIVE); COLOR,URINE DARK YELLOW (YELLOW); KETONES,URINE TRACE mg/dL (NEGATIVE); LEUKOCYTE ESTERASE ,URINE TRACE (NEGATIVE); NITRITE, URINE POSITIVE (NEGATIVE); PH,URINE 6.5 (5.0-8.0); PROTEIN,URINE 2+ mg/dl (NEGATIVE); UGLUCOSE NEGATIVE (NEGATIVE)
[2023-05-12] MEDS ORDERED: ALTEPLASE CATHFLO 2 MG/VIAL XX ONE (12:00)
[2023-05-12 12:04] LABS: ADD URINE CULTURE YES; BACTERIA,URINE Few /HPF (None Seen); EOSINOPHIL,URINE None Seen; SQUAMOUS EPITHELIAL CELL,UR Rare /HPF (None Seen)
[2023-05-13] VITALS (25 sets, daily range): BP systolic 90–123; BP diastolic 60–84; TEMP 98.6–99.1; O2SAT 95–100
[2023-05-13] MEDS: IPRATROPIUM NEB FS 0.5 MG/2.5 ML AMPUL.NEB NEB SCH ×4 (01:17→20:01)
[2023-05-13 05:38] LABS: BASOPHILS % (AUTO) 0.4 % (0.0-2.0); CALCIUM, SERUM 8.8 mg/dL (8.5-10.1); CREATININE 0.8 mg/dL (0.6-1.3); EOSINOPHILS # (AUTO) 0.2 K/uL (0.0-0.7); EOSINOPHILS % (AUTO) 1.7 % (0.0-6.0); HEMATOCRIT 34 % (39-51); HEMOGLOBIN 11.2 g/dL (13.5-17.5); LYMPHOCYTES # (AUTO) 1.1 K/uL (0.8-4.8); LYMPHOCYTES % (AUTO) 11.5 % (20.0-44.0); MAGNESIUM 2.7 mg/dL (1.8-2.4); MEAN CORPUSCULAR HEMOGLOBIN 30 PG (26.0-33.0); MEAN CORPUSCULAR HGB CONC 33 g/dl (31.0-36.0); MEAN CORPUSCULAR VOLUME 91 fL (80-96); MONOCYTES # (AUTO) 0.6 K/uL (0.1-1.30); MONOCYTES % (AUTO) 5.7 % (2.0-12.0); NEUTROPHILS % (AUTO) 80.7 % (43.0-81.0); PHOSPHORUS 3.6 mg/dL (2.5-4.9); PLATELET COUNT (AUTO) 234 K/uL (150-450); POTASSIUM 3.8 mmol/L (3.5-5.1); RED BLOOD CELL COUNT(AUTO) 3.75 MIL/uL (4.5-6.0); WHITE BLOOD COUNT (AUTO) 9.9 K/uL (4.3-11.0)
[2023-05-13] MEDS: BACLOFEN (10 MG) 10 MG TABLET GT SCH ×4 (05:39→23:13)
[2023-05-13] MEDS: VANCOMYCIN HCL 125 MG/2.5 ML ORAL.SUSP PO SCH ×4 (05:40→23:13)
[2023-05-13] MEDS: METRONIDAZOLE 500MG/ NS 100ML 500 MG in PREMIX 1 EA IV SCH ×3 (06:03→23:04)
[2023-05-13 07:00] LABS: ABG BASE EXCESS 5.7 mmol/L; ABG OXYGEN SATURATION 87.2 % (92.0-98.5); ABG PCO2 44.5 mmHg (35.0-45.0); ABG PH 7.453 (7.350-7.450); ABG PO2 52.2 mmHg (75.0-100.0); AaDO2 254.2 mmHg; COHb 1.1 % (0.5-1.5); MetHb 0.2 % (0.0-1.5); O2Hb 86.1 % (94.0-97.0); PEEP,BG 5 cm H2O; SITE, ABG Right Radial; VT, ABG 450 mL
[2023-05-13] MEDS: ACETYLCYSTEINE 20% SOLN 800 MG/4 ML VIAL NEB SCH ×3 (07:21→23:55)
[2023-05-13] MEDS: CHLORHEXIDINE GLUCONATE 15 ML UDC MM SCH ×2 (08:12→20:49)
[2023-05-13] MEDS: LEVETIRACETAM SOL (5 ML) 100 MG/ML UDC GT SCH ×2 (08:12→20:48)
[2023-05-13] MEDS: PANTOPRAZOLE 40 MG VIAL IV SCH (10:25)
[2023-05-13] MEDS: GLUCERNA 1.2 1,000 ML BOTTLE NG PRN (10:53)
[2023-05-13] MEDS ORDERED: IV NS 0.9% 1,000 ML IV PRN (12:00)
[2023-05-13] MEDS: ACETAMINOPHEN 650 MG/20.3 ML UDC PEG PRN (21:27)
[2023-05-14] VITALS (23 sets, daily range): BP systolic 93–118; BP diastolic 59–89; TEMP 97.1–99.1; O2SAT 96–100
[2023-05-14] MEDS: IPRATROPIUM NEB FS 0.5 MG/2.5 ML AMPUL.NEB NEB SCH ×4 (01:54→19:51)
[2023-05-14 05:04] LABS: BASOPHILS % (AUTO) 0.4 % (0.0-2.0); EOSINOPHILS # (AUTO) 0.1 K/uL (0.0-0.7); EOSINOPHILS % (AUTO) 2.1 % (0.0-6.0); HEMATOCRIT 34 % (39-51); HEMOGLOBIN 10.9 g/dL (13.5-17.5); LYMPHOCYTES # (AUTO) 0.9 K/uL (0.8-4.8); LYMPHOCYTES % (AUTO) 13.8 % (20.0-44.0); MEAN CORPUSCULAR HEMOGLOBIN 30 PG (26.0-33.0); MEAN CORPUSCULAR HGB CONC 33 g/dl (31.0-36.0); MEAN CORPUSCULAR VOLUME 91 fL (80-96); MONOCYTES # (AUTO) 0.5 K/uL (0.1-1.30); MONOCYTES % (AUTO) 7.4 % (2.0-12.0); NEUTROPHILS % (AUTO) 76.3 % (43.0-81.0); PLATELET COUNT (AUTO) 204 K/uL (150-450); RED BLOOD CELL COUNT(AUTO) 3.67 MIL/uL (4.5-6.0); RED CELL DISTRIBUTION WIDTH 16.4 % (11.5-15.0); WHITE BLOOD COUNT (AUTO) 6.6 K/uL (4.3-11.0)
[2023-05-14] MEDS: BACLOFEN (10 MG) 10 MG TABLET GT SCH ×4 (05:10→23:17)
[2023-05-14] MEDS: VANCOMYCIN HCL 125 MG/2.5 ML ORAL.SUSP PO SCH ×4 (05:12→23:17)
[2023-05-14 05:20] LABS: CALCIUM, SERUM 8.5 mg/dL (8.5-10.1); CREATININE 0.6 mg/dL (0.6-1.3); MAGNESIUM 2.5 mg/dL (1.8-2.4); PHOSPHORUS 3.5 mg/dL (2.5-4.9); POTASSIUM 3.6 mmol/L (3.5-5.1)
[2023-05-14] MEDS: METRONIDAZOLE 500MG/ NS 100ML 500 MG in PREMIX 1 EA IV SCH ×3 (06:16→23:17)
[2023-05-14] MEDS: ACETYLCYSTEINE 20% SOLN 800 MG/4 ML VIAL NEB SCH ×3 (07:34→23:51)
[2023-05-14] MEDS: LEVETIRACETAM SOL (5 ML) 100 MG/ML UDC GT SCH ×2 (08:27→20:54)
[2023-05-14] MEDS: CHLORHEXIDINE GLUCONATE 15 ML UDC MM SCH ×2 (08:27→20:54)
[2023-05-14] MEDS: PANTOPRAZOLE 40 MG VIAL IV SCH (09:46)
[2023-05-15] VITALS (24 sets, daily range): BP systolic 99–134; BP diastolic 62–83; TEMP 98–99.7; O2SAT 18–100
[2023-05-15] MEDS: IPRATROPIUM NEB FS 0.5 MG/2.5 ML AMPUL.NEB NEB SCH ×4 (01:54→20:02)
[2023-05-15 05:40] LABS: BASOPHILS % (AUTO) 0.4 % (0.0-2.0); EOSINOPHILS # (AUTO) 0.3 K/uL (0.0-0.7); EOSINOPHILS % (AUTO) 3.7 % (0.0-6.0); HEMATOCRIT 35 % (39-51); HEMOGLOBIN 11.4 g/dL (13.5-17.5); LYMPHOCYTES # (AUTO) 1.2 K/uL (0.8-4.8); LYMPHOCYTES % (AUTO) 15.4 % (20.0-44.0); MEAN CORPUSCULAR HEMOGLOBIN 30 PG (26.0-33.0); MEAN CORPUSCULAR HGB CONC 32 g/dl (31.0-36.0); MEAN CORPUSCULAR VOLUME 91 fL (80-96); MONOCYTES # (AUTO) 0.5 K/uL (0.1-1.30); MONOCYTES % (AUTO) 6.7 % (2.0-12.0); NEUTROPHILS # (AUTO) 5.7 K/uL (1.8-8.9); NEUTROPHILS % (AUTO) 73.8 % (43.0-81.0); PLATELET COUNT (AUTO) 207 K/uL (150-450); RED BLOOD CELL COUNT(AUTO) 3.86 MIL/uL (4.5-6.0); RED CELL DISTRIBUTION WIDTH 15.9 % (11.5-15.0); WHITE BLOOD COUNT (AUTO) 7.7 K/uL (4.3-11.0)
[2023-05-15] MEDS: GLUCERNA 1.2 1,000 ML BOTTLE NG PRN ×2 (05:43→23:39)
[2023-05-15 05:57] LABS: CALCIUM, SERUM 8.6 mg/dL (8.5-10.1); CREATININE 0.6 mg/dL (0.6-1.3); MAGNESIUM 2.1 mg/dL (1.8-2.4); PHOSPHORUS 3.2 mg/dL (2.5-4.9); POTASSIUM 3.9 mmol/L (3.5-5.1)
[2023-05-15] MEDS: VANCOMYCIN HCL 125 MG/2.5 ML ORAL.SUSP PO SCH ×4 (06:17→23:42)
[2023-05-15] MEDS: METRONIDAZOLE 500MG/ NS 100ML 500 MG in PREMIX 1 EA IV SCH ×3 (06:17→22:08)
[2023-05-15] MEDS: BACLOFEN (10 MG) 10 MG TABLET GT SCH ×4 (06:17→23:42)
[2023-05-15] MEDS: ACETYLCYSTEINE 20% SOLN 800 MG/4 ML VIAL NEB SCH ×2 (07:46→16:07)
[2023-05-15] MEDS: PANTOPRAZOLE 40 MG/PACK PACK GT SCH (08:17)
[2023-05-15] MEDS: LEVETIRACETAM SOL (5 ML) 100 MG/ML UDC GT SCH ×2 (08:17→22:08)
[2023-05-15] MEDS: CHLORHEXIDINE GLUCONATE 15 ML UDC MM SCH ×2 (08:17→22:08)
[2023-05-16] VITALS (39 sets, daily range): BP systolic 86–121; BP diastolic 52–81; TEMP 97.8–103.3; O2SAT 92–99
[2023-05-16] MEDS: ACETYLCYSTEINE 20% SOLN 800 MG/4 ML VIAL NEB SCH ×3 (00:11→13:07)
[2023-05-16] MEDS: IPRATROPIUM NEB FS 0.5 MG/2.5 ML AMPUL.NEB NEB SCH ×4 (02:22→19:58)
[2023-05-16 05:25] LABS: CALCIUM, SERUM 8.5 mg/dL (8.5-10.1); CREATININE 0.5 mg/dL (0.6-1.3); MAGNESIUM 2.1 mg/dL (1.8-2.4); PHOSPHORUS 3.1 mg/dL (2.5-4.9); POTASSIUM 3.7 mmol/L (3.5-5.1)
[2023-05-16 05:30] LABS: EOSINOPHILS # (AUTO) 0.3 K/uL (0.0-0.7); EOSINOPHILS % (AUTO) 4.5 % (0.0-6.0); HEMATOCRIT 36 % (39-51); HEMOGLOBIN 11.7 g/dL (13.5-17.5); LYMPHOCYTES # (AUTO) 0.6 K/uL (0.8-4.8); LYMPHOCYTES % (AUTO) 8.9 % (20.0-44.0); MEAN CORPUSCULAR HEMOGLOBIN 30 PG (26.0-33.0); MEAN CORPUSCULAR HGB CONC 33 g/dl (31.0-36.0); MEAN CORPUSCULAR VOLUME 90 fL (80-96); MONOCYTES # (AUTO) 0.2 K/uL (0.1-1.30); MONOCYTES % (AUTO) 2.9 % (2.0-12.0); NEUTROPHILS # (AUTO) 5.8 K/uL (1.8-8.9); NEUTROPHILS % (AUTO) 83.7 % (43.0-81.0); PLATELET COUNT (AUTO) 190 K/uL (150-450); RED BLOOD CELL COUNT(AUTO) 3.96 MIL/uL (4.5-6.0); RED CELL DISTRIBUTION WIDTH 15.6 % (11.5-15.0)
[2023-05-16] MEDS: VANCOMYCIN HCL 125 MG/2.5 ML ORAL.SUSP PO SCH ×4 (05:30→23:38)
[2023-05-16] MEDS: BACLOFEN (10 MG) 10 MG TABLET GT SCH ×4 (05:30→23:38)
[2023-05-16] MEDS: METRONIDAZOLE 500MG/ NS 100ML 500 MG in PREMIX 1 EA IV SCH (06:06)
[2023-05-16] MEDS: CHLORHEXIDINE GLUCONATE 15 ML UDC MM SCH ×2 (09:01→20:19)
[2023-05-16] MEDS: LEVETIRACETAM SOL (5 ML) 100 MG/ML UDC GT SCH ×2 (09:02→20:19)
[2023-05-16] MEDS: PANTOPRAZOLE 40 MG/PACK PACK GT SCH (09:02)
[2023-05-16] MEDS: METRONIDAZOLE 500 MG TABLET GT SCH ×2 (14:40→20:19)
[2023-05-16] MEDS: ACETAMINOPHEN 650 MG/20.3 ML UDC PEG PRN ×2 (18:43→20:18)
[2023-05-17] VITALS (37 sets, daily range): BP systolic 81–114; BP diastolic 52–73; TEMP 99–102.6; O2SAT 91–100
[2023-05-17] MEDS: ACETYLCYSTEINE 20% SOLN 800 MG/4 ML VIAL NEB SCH ×4 (00:12→23:28)
[2023-05-17] MEDS: IPRATROPIUM NEB FS 0.5 MG/2.5 ML AMPUL.NEB NEB SCH ×4 (01:52→19:41)
[2023-05-17 05:08] LABS: BASOPHILS % (AUTO) 0.1 % (0.0-2.0); HEMATOCRIT 38 % (39-51); HEMOGLOBIN 12.3 g/dL (13.5-17.5); LYMPHOCYTES # (AUTO) 0.6 K/uL (0.8-4.8); LYMPHOCYTES % (AUTO) 3.1 % (20.0-44.0); MEAN CORPUSCULAR HEMOGLOBIN 29 PG (26.0-33.0); MEAN CORPUSCULAR HGB CONC 33 g/dl (31.0-36.0); MEAN CORPUSCULAR VOLUME 89 fL (80-96); MONOCYTES # (AUTO) 0.9 K/uL (0.1-1.30); MONOCYTES % (AUTO) 4.3 % (2.0-12.0); NEUTROPHILS # (AUTO) 18.6 K/uL (1.8-8.9); NEUTROPHILS % (AUTO) 92.5 % (43.0-81.0); PLATELET COUNT (AUTO) 176 K/uL (150-450); RED BLOOD CELL COUNT(AUTO) 4.21 MIL/uL (4.5-6.0); RED CELL DISTRIBUTION WIDTH 16.1 % (11.5-15.0); WHITE BLOOD COUNT (AUTO) 20.1 K/uL (4.3-11.0)
[2023-05-17 05:28] LABS: CALCIUM, SERUM 8.7 mg/dL (8.5-10.1); CREATININE 0.9 mg/dL (0.6-1.3); MAGNESIUM 2.1 mg/dL (1.8-2.4); PHOSPHORUS 2.6 mg/dL (2.5-4.9); POTASSIUM 4.3 mmol/L (3.5-5.1)
[2023-05-17] MEDS: METRONIDAZOLE 500 MG TABLET GT SCH ×3 (05:40→21:00)
[2023-05-17] MEDS: VANCOMYCIN HCL 125 MG/2.5 ML ORAL.SUSP PO SCH ×4 (05:41→23:33)
[2023-05-17] MEDS: BACLOFEN (10 MG) 10 MG TABLET GT SCH ×4 (05:41→23:34)
[2023-05-17] MEDS: ACETAMINOPHEN 650 MG/20.3 ML UDC PEG PRN ×2 (05:44→08:50)
[2023-05-17] MEDS ORDERED: IV NS 0.9% 1,000 ML BAG IV ONE (08:30)
[2023-05-17] MEDS: LEVETIRACETAM SOL (5 ML) 100 MG/ML UDC GT SCH ×2 (08:38→21:00)
[2023-05-17] MEDS: PANTOPRAZOLE 40 MG/PACK PACK GT SCH (08:38)
[2023-05-17] MEDS: CHLORHEXIDINE GLUCONATE 15 ML UDC MM SCH ×2 (08:38→21:00)
[2023-05-17] MEDS ORDERED: LEVOFLOXACIN 750 MG /D5W 150ML 150 ML IV SCH (11:00)
[2023-05-17 11:35] LABS: APPEARANCE,URINE SLIGHTLY CLOUDY (CLEAR); BILIRUBIN,URINE 1+ (NEGATIVE); BLOOD, URINE 2+ Ery/uL (NEGATIVE); COLOR,URINE DARK YELLOW (YELLOW); KETONES,URINE TRACE mg/dL (NEGATIVE); LEUKOCYTE ESTERASE ,URINE TRACE (NEGATIVE); NITRITE, URINE POSITIVE (NEGATIVE); PROTEIN,URINE 2+ mg/dl (NEGATIVE); UGLUCOSE NEGATIVE (NEGATIVE)
[2023-05-17 12:05] LABS: ADD URINE CULTURE YES; BACTERIA,URINE Few /HPF (None Seen); RBC,URINE 21-50 /HPF (0-2)
[2023-05-17 12:06] LABS: SQUAMOUS EPITHELIAL CELL,UR Few /HPF (None Seen)
[2023-05-17] MEDS: IV D5/ 0.9% NACL 1,000 ML IV PRN ×2 (12:48→21:32)
[2023-05-17] MEDS: GLUCERNA 1.2 1,000 ML BOTTLE NG PRN (18:29)
[2023-05-18] VITALS (25 sets, daily range): BP systolic 86–110; BP diastolic 50–80; TEMP 98.6–100.6; O2SAT 97–100
[2023-05-18] MEDS: ACETAMINOPHEN 650 MG/20.3 ML UDC PEG PRN (00:06)
[2023-05-18] MEDS: IPRATROPIUM NEB FS 0.5 MG/2.5 ML AMPUL.NEB NEB SCH ×4 (01:10→19:46)
[2023-05-18 04:58] LABS: BASOPHILS % (AUTO) 0.1 % (0.0-2.0); EOSINOPHILS % (AUTO) 0.3 % (0.0-6.0); HEMATOCRIT 33 % (39-51); HEMOGLOBIN 10.7 g/dL (13.5-17.5); LYMPHOCYTES # (AUTO) 0.7 K/uL (0.8-4.8); LYMPHOCYTES % (AUTO) 9.2 % (20.0-44.0); MEAN CORPUSCULAR HEMOGLOBIN 30 PG (26.0-33.0); MEAN CORPUSCULAR HGB CONC 33 g/dl (31.0-36.0); MEAN CORPUSCULAR VOLUME 91 fL (80-96); MONOCYTES # (AUTO) 0.5 K/uL (0.1-1.30); MONOCYTES % (AUTO) 6.6 % (2.0-12.0); NEUTROPHILS % (AUTO) 83.8 % (43.0-81.0); PLATELET COUNT (AUTO) 106 K/uL (150-450); RED BLOOD CELL COUNT(AUTO) 3.59 MIL/uL (4.5-6.0); RED CELL DISTRIBUTION WIDTH 16.6 % (11.5-15.0); WHITE BLOOD COUNT (AUTO) 7.2 K/uL (4.3-11.0)
[2023-05-18] MEDS: VANCOMYCIN HCL 125 MG/2.5 ML ORAL.SUSP PO SCH ×4 (05:09→23:46)
[2023-05-18] MEDS: METRONIDAZOLE 500 MG TABLET GT SCH ×3 (05:09→21:13)
[2023-05-18] MEDS: BACLOFEN (10 MG) 10 MG TABLET GT SCH ×4 (05:09→23:46)
[2023-05-18 05:28] LABS: CALCIUM, SERUM 7.7 mg/dL (8.5-10.1); CREATININE 0.8 mg/dL (0.6-1.3); PHOSPHORUS 2.1 mg/dL (2.5-4.9); POTASSIUM 3.6 mmol/L (3.5-5.1)
[2023-05-18] MEDS: ACETYLCYSTEINE 20% SOLN 800 MG/4 ML VIAL NEB SCH ×2 (07:35→23:28)
[2023-05-18] MEDS: IV D5/ 0.9% NACL 1,000 ML IV PRN ×2 (08:40→18:34)
[2023-05-18] MEDS: LEVETIRACETAM SOL (5 ML) 100 MG/ML UDC GT SCH ×2 (09:12→21:14)
[2023-05-18] MEDS: PANTOPRAZOLE 40 MG/PACK PACK GT SCH (09:12)
[2023-05-18] MEDS: CHLORHEXIDINE GLUCONATE 15 ML UDC MM SCH ×2 (09:13→21:14)
[2023-05-18] MEDS: MEROPENEM 1 G in IV NS 0.9% 100 ML IV SCH ×2 (11:35→18:31)
[2023-05-18] MEDS: GLUCERNA 1.2 1,000 ML BOTTLE NG PRN (12:21)
[2023-05-18] MEDS ORDERED: NEUTRA PHOS 1 POWD.PACKET GT ONE (17:00)
[2023-05-19] VITALS (26 sets, daily range): BP systolic 74–121; BP diastolic 40–88; TEMP 98.2–99.3; O2SAT 98–100
[2023-05-19] MEDS: IPRATROPIUM NEB FS 0.5 MG/2.5 ML AMPUL.NEB NEB SCH ×4 (01:18→19:29)
[2023-05-19] MEDS: MEROPENEM 1 G in IV NS 0.9% 100 ML IV SCH ×3 (03:02→18:00)
[2023-05-19 04:20] LABS: BASOPHILS % (AUTO) 0.5 % (0.0-2.0); EOSINOPHILS # (AUTO) 0.1 K/uL (0.0-0.7); EOSINOPHILS % (AUTO) 2.1 % (0.0-6.0); HEMATOCRIT 29 % (39-51); HEMOGLOBIN 9.3 g/dL (13.5-17.5); LYMPHOCYTES # (AUTO) 0.7 K/uL (0.8-4.8); LYMPHOCYTES % (AUTO) 14.2 % (20.0-44.0); MEAN CORPUSCULAR HEMOGLOBIN 30 PG (26.0-33.0); MEAN CORPUSCULAR HGB CONC 33 g/dl (31.0-36.0); MEAN CORPUSCULAR VOLUME 91 fL (80-96); MONOCYTES # (AUTO) 0.5 K/uL (0.1-1.30); NEUTROPHILS # (AUTO) 3.8 K/uL (1.8-8.9); NEUTROPHILS % (AUTO) 73.2 % (43.0-81.0); PLATELET COUNT (AUTO) 101 K/uL (150-450); RED BLOOD CELL COUNT(AUTO) 3.16 MIL/uL (4.5-6.0); RED CELL DISTRIBUTION WIDTH 16.5 % (11.5-15.0); WHITE BLOOD COUNT (AUTO) 5.2 K/uL (4.3-11.0)
[2023-05-19] MEDS: IV D5/ 0.9% NACL 1,000 ML IV PRN ×2 (04:21→23:16)
[2023-05-19 04:56] LABS: ALBUMIN 1.6 g/dL (3.4-5.0); BILIRUBIN,TOTAL 0.2 mg/dL (0.2-1.0); CALCIUM, SERUM 7.5 mg/dL (8.5-10.1); CREATININE 0.7 mg/dL (0.6-1.3); PHOSPHORUS 2.2 mg/dL (2.5-4.9); POTASSIUM 3.9 mmol/L (3.5-5.1); TOTAL PROTEIN, SERUM 5.8 g/dL (6.4-8.2)
[2023-05-19] MEDS: METRONIDAZOLE 500 MG TABLET GT SCH ×3 (05:13→21:24)
[2023-05-19] MEDS: BACLOFEN (10 MG) 10 MG TABLET GT SCH ×3 (05:14→17:09)
[2023-05-19] MEDS: VANCOMYCIN HCL 125 MG/2.5 ML ORAL.SUSP PO SCH ×3 (05:14→17:10)
[2023-05-19] MEDS: GLUCERNA 1.2 1,000 ML BOTTLE NG PRN (06:18)
[2023-05-19] MEDS: ACETYLCYSTEINE 20% SOLN 800 MG/4 ML VIAL NEB SCH ×3 (07:35→23:34)
[2023-05-19] MEDS: PANTOPRAZOLE 40 MG/PACK PACK GT SCH (08:25)
[2023-05-19] MEDS: LEVETIRACETAM SOL (5 ML) 100 MG/ML UDC GT SCH ×2 (08:25→21:25)
[2023-05-19] MEDS: CHLORHEXIDINE GLUCONATE 15 ML UDC MM SCH ×2 (08:25→21:25)
[2023-05-19] MEDS ORDERED: IV NS 0.9% 500 ML IV ONE (09:30)
[2023-05-19] MEDS ORDERED: PROPOFOL 100 ML IV PRN (09:30)
[2023-05-19] MEDS ORDERED: PHENYLEPHRINE 50 MG in IV NS 0.9% 245 ML IV PRN (11:00)
[2023-05-19] MEDS ORDERED: NEUTRA PHOS 1 POWD.PACKET PO ONE (18:00)
[2023-05-20] VITALS (29 sets, daily range): BP systolic 86–120; BP diastolic 54–77; TEMP 97.1–99.1; O2SAT 98–100
[2023-05-20] MEDS: VANCOMYCIN HCL 125 MG/2.5 ML ORAL.SUSP PO SCH ×4 (00:13→17:49)
[2023-05-20] MEDS: BACLOFEN (10 MG) 10 MG TABLET GT SCH ×4 (00:13→17:49)
[2023-05-20] MEDS: IPRATROPIUM NEB FS 0.5 MG/2.5 ML AMPUL.NEB NEB SCH ×4 (01:19→19:56)
[2023-05-20] MEDS: MEROPENEM 1 G in IV NS 0.9% 100 ML IV SCH ×3 (03:00→18:00)
[2023-05-20 04:16] LABS: BASOPHILS % (AUTO) 0.2 % (0.0-2.0); EOSINOPHILS # (AUTO) 0.1 K/uL (0.0-0.7); EOSINOPHILS % (AUTO) 2.7 % (0.0-6.0); HEMATOCRIT 30 % (39-51); LYMPHOCYTES # (AUTO) 0.9 K/uL (0.8-4.8); LYMPHOCYTES % (AUTO) 15.8 % (20.0-44.0); MEAN CORPUSCULAR HEMOGLOBIN 30 PG (26.0-33.0); MEAN CORPUSCULAR HGB CONC 33 g/dl (31.0-36.0); MEAN CORPUSCULAR VOLUME 89 fL (80-96); MONOCYTES # (AUTO) 0.3 K/uL (0.1-1.30); MONOCYTES % (AUTO) 6.4 % (2.0-12.0); NEUTROPHILS % (AUTO) 74.9 % (43.0-81.0); PLATELET COUNT (AUTO) 123 K/uL (150-450); RED BLOOD CELL COUNT(AUTO) 3.37 MIL/uL (4.5-6.0); RED CELL DISTRIBUTION WIDTH 16.5 % (11.5-15.0); WHITE BLOOD COUNT (AUTO) 5.4 K/uL (4.3-11.0)
[2023-05-20 05:01] LABS: CALCIUM, SERUM 7.6 mg/dL (8.5-10.1); CREATININE 0.6 mg/dL (0.6-1.3); MAGNESIUM 1.8 mg/dL (1.8-2.4); PHOSPHORUS 2.7 mg/dL (2.5-4.9); POTASSIUM 3.6 mmol/L (3.5-5.1)
[2023-05-20] MEDS: METRONIDAZOLE 500 MG TABLET GT SCH ×3 (05:10→20:59)
[2023-05-20] MEDS: ACETYLCYSTEINE 20% SOLN 800 MG/4 ML VIAL NEB SCH ×3 (07:41→23:35)
[2023-05-20] MEDS: PANTOPRAZOLE 40 MG/PACK PACK GT SCH (08:02)
[2023-05-20] MEDS: CHLORHEXIDINE GLUCONATE 15 ML UDC MM SCH ×2 (08:02→20:59)
[2023-05-20] MEDS: LEVETIRACETAM SOL (5 ML) 100 MG/ML UDC GT SCH ×2 (08:02→20:59)
[2023-05-20] MEDS: GLUCERNA 1.2 1,000 ML BOTTLE NG PRN (10:53)
[2023-05-20] MEDS: IV D5/ 0.9% NACL 1,000 ML IV PRN ×2 (14:37→15:17)
[2023-05-21] VITALS (14 sets, daily range): BP systolic 89–122; BP diastolic 50–68; TEMP 97.6–99.4; O2SAT 98–100
[2023-05-21] MEDS: VANCOMYCIN HCL 125 MG/2.5 ML ORAL.SUSP PO SCH ×2 (00:31→05:08)
[2023-05-21] MEDS: BACLOFEN (10 MG) 10 MG TABLET GT SCH ×2 (00:31→05:08)
[2023-05-21] MEDS: IPRATROPIUM NEB FS 0.5 MG/2.5 ML AMPUL.NEB NEB SCH ×2 (00:43→07:10)
[2023-05-21] MEDS: MEROPENEM 1 G in IV NS 0.9% 100 ML IV SCH (02:41)
[2023-05-21] MEDS: IV D5/ 0.9% NACL 1,000 ML IV PRN (04:58)
[2023-05-21] MEDS: METRONIDAZOLE 500 MG TABLET GT SCH (05:08)
[2023-05-21] MEDS: GLUCERNA 1.2 1,000 ML BOTTLE NG PRN (05:13)
[2023-05-21] MEDS: ACETYLCYSTEINE 20% SOLN 800 MG/4 ML VIAL NEB SCH (07:10)
[2023-05-21] MEDS: PANTOPRAZOLE 40 MG/PACK PACK GT SCH (09:19)
[2023-05-21] MEDS: CHLORHEXIDINE GLUCONATE 15 ML UDC MM SCH (09:19)
[2023-05-21] MEDS: LEVETIRACETAM SOL (5 ML) 100 MG/ML UDC GT SCH (09:19)
[2023-05-22 06:41] LABS: ABG BASE EXCESS 3.6 mmol/L; ABG OXYGEN SATURATION 93.1 % (92.0-98.5); ABG PCO2 48.7 mmHg (35.0-45.0); ABG PH 7.396 (7.350-7.450); ABG PO2 69.6 mmHg (75.0-100.0); COHb 0.3 % (0.5-1.5); MetHb 0.4 % (0.0-1.5); O2Hb 92.4 % (94.0-97.0); PEEP,BG 0 cm H2O; SITE, ABG Other; VT, ABG 425 mL
== END 2023-05-21 10:52 | disposition short-term general hospital (02) | DRG 720 ==
LOC: ER 09:02 → TELE 12:25 → TELE-TD 04-27 15:45 → TELE1 04-27 16:00 → TELE-TD 04-27 16:06 → TELE1 04-29 16:20 → ICU 05-11 10:11
PROVIDERS: ADMIT Nurse Practitioner Family; ATTEND Nurse Practitioner Family
PROC: 5A1955Z Respiratory Ventilation, Greater than 96 Consecutive Hours (ICD-10-PCS; principal; 2023-04-27)
PROC: 0W993ZZ Drainage of Right Pleural Cavity, Percutaneous Approach (ICD-10-PCS; 2023-04-27)
PROC: 05H633Z Insertion of Infusion Device into Left Subclavian Vein, Percutaneous Approach (ICD-10-PCS; 2023-04-29)
PROC: B547ZZA Ultrasonography of Left Subclavian Vein, Guidance (ICD-10-PCS; 2023-04-29)
PROC: 0W9930Z Drainage of Right Pleural Cavity with Drainage Device, Percutaneous Approach (ICD-10-PCS; 2023-05-04)
PROC: 3E0L3GC Introduction of Other Therapeutic Substance into Pleural Cavity, Percutaneous Approach (ICD-10-PCS; 2023-05-12)
PROC: 05H533Z Insertion of Infusion Device into Right Subclavian Vein, Percutaneous Approach (ICD-10-PCS; 2023-05-18)
PROC: B546ZZA Ultrasonography of Right Subclavian Vein, Guidance (ICD-10-PCS; 2023-05-18)
PROC: 0BJ08ZZ Inspection of Tracheobronchial Tree, Via Natural or Artificial Opening Endoscopic (ICD-10-PCS; 2023-05-20)
DX: A41.9 Sepsis, unspecified organism (principal); J96.21 Acute and chronic respiratory failure with hypoxia; G93.41 Metabolic encephalopathy; J94.2 Hemothorax; J15.69 Pneumonia due to other Gram-negative bacteria; E44.0 Moderate protein-calorie malnutrition; R57.9 Shock, unspecified; A04.72 Enterocolitis due to Clostridium difficile, not specified as recurrent; J95.03 Malfunction of tracheostomy stoma; Z99.11 Dependence on respirator [ventilator] status; G93.1 Anoxic brain damage, not elsewhere classified; D68.69 Other thrombophilia; J90 Pleural effusion, not elsewhere classified; I47.20 Ventricular tachycardia, unspecified; N17.9 Acute kidney failure, unspecified; R53.2 Functional quadriplegia; D64.9 Anemia, unspecified; E88.09 Other disorders of plasma-protein metabolism, not elsewhere classified; I25.10 Atherosclerotic heart disease of native coronary artery without angina pectoris; J98.11 Atelectasis; K21.9 Gastro-esophageal reflux disease without esophagitis; M24.561 Contracture, right knee; M24.562 Contracture, left knee; R13.10 Dysphagia, unspecified; Z86.69 Personal history of other diseases of the nervous system and sense organs; Z20.822 Contact with and (suspected) exposure to COVID-19; J98.19 Other pulmonary collapse; Z88.0 Allergy status to penicillin; Z93.1 Gastrostomy status; M24.522 Contracture, left elbow; M24.521 Contracture, right elbow; S40.811A Abrasion of right upper arm, initial encounter; X58.XXXA Exposure to other specified factors, initial encounter; Y93.9 Activity, unspecified; Y92.129 Unspecified place in nursing home as the place of occurrence of the external cause; L98.8 Other specified disorders of the skin and subcutaneous tissue; J39.8 Other specified diseases of upper respiratory tract; I10 Essential (primary) hypertension; M89.8X9 Other specified disorders of bone, unspecified site; Y83.3 Surgical operation with formation of external stoma as the cause of abnormal reaction of the patient, or of later complication, without mention of misadventure at the time of the procedure
CPT/HCPCS: 31720; 36410; 36415; 36600; 71045-TC; 71250-TC; 74018; 75989; 75989-TC; 76604-TC; 80048-TC; 80053-TC; 80076-TC; 80202-TC; 81001; 82570-TC; 82803-TC; 82962-TC; 83605-TC; 83735-TC; 84100-TC; 84300-TC; 84484-TC; 85025-TC; 85610-TC; 85730-TC; 86803; 87040-TC; 87081-TC; 87086-TC; 87186-TC; 87806; 89051-TC; 94003-TC; 94640-TC; 94760-TC; 94762-TC; 94799-TC; 99082-TC; A4216; A4217; A4223; A4349; A4623; A6253; A6403; A7526; C9113; G0378; J0692; J1200; J1644; J1953; J1956; J2060; J2185; J2270; J2997; J3370; J3490; J7030; J7040; J7042; J7050; J7060; J7070; Q0163; Q9963